=== PATIENT | male | born 1950 | race Caucasian/White ===

== ENCOUNTER 2019-06-15 17:12 | Inpatient (IN) | payer OTHER, SELFPAY ==
[2019-06-15] VITALS (9 sets, daily range): BP systolic 97–147; BP diastolic 52–85; PULSE 72–98; RESP 15–23; TEMP 36.6–37.1; O2SAT 92–100
--- NOTE | ~2019-06-15 | XR_ITS ---
XR chest 1V portable 06/15/2019 20:51 Indication: Appendicitis. Preop. Procedure: 2 view chest Comparison: No prior studies for comparison. Findings: Heart size normal. No focal air space disease, pulmonary edema, pleural effusion or suspect ed pneumothorax. No acute osseous abnormality. There are changes of distal clavicular osteotomy on th e left. Impression: 1: No acute cardiopulmonary disease. Reviewed, dictated and finalized at location A. PERSON OR LUGGAGE PORTER Impression: 1: No acute cardiopulmonary disease.
--- NOTE | ~2019-06-15 | XR_ITS ---
EXAMINATION: XR abdomen NG/feed tube insert EXAM DATE: 06/23/2019 12:20 INDICATION: Tube placement. TECHNIQUE: Frontal projection(s) of the abdomen for interpretation. Comparison is made to prior exami nation from earlier same date. FINDINGS: Feeding tube tip is at the gastroesophageal junction, could be safely advanced about 10 cm. Multiple loops of severely distended air-filled small bowel, could be ileus correlating with prior r eports. IMPRESSION: Feeding tube should be advanced about 10 cm. I discussed feeding tube position, recommendation with Layo nurse taking care of patient at 06/23/2019 12:37 FRONT ATTENDANT. Reviewed, dictated and finalized at location A. T ATTENDANT
--- NOTE | ~2019-06-15 | CT_ITS ---
EXAMINATION: CT abdomen pelvis w con DATE: 06/23/2019 17:15 INDICATION: Abdominal distention post appendectomy TECHNIQUE: Computed tomography (CT) of the abdomen and pelvis was performed with 100 mL Omnipaque-350 intravenous contrast. Automated exposure control and iterative reconstruction technique were employe d. The dose-length product was 542.34 mGy-cm. COMPARISON: CT dated 06/15/2019 and radiograph dated 06/23/2019 FINDINGS: Elevation of the right hemidiaphragm. Small bilateral pleural effusions with compressive atelectasis in the bilateral lower lobes, right greater than left. Heart size is normal. Atherosclerotic coronary artery calcifications. No pericardial effusion. Small sliding-type hiatal hernia. Enteric feeding tu be tip in the distal thoracic body of the stomach. Diffuse hepatic steatosis with more focal fat along the gallbladder fossa. 12 mm cyst in the right he patic lobe. Gallbladder, spleen, pancreas, bilateral adrenal glands and right kidney are normal. Nono bstructing 2 mm stone at a lower pole calyx of the right kidney. 6 Postoperative change of interval appendectomy with suture line along the tip of the cecum. Surgical drain enters at the midline anterior abdominal wall close in the pelvis with distal tip along the la teral tip of the cecum. There is at least partial small bowel obstruction with dilated loops of bowel measuring up to 5 cm in maximal diameter with transition point in the left hemipelvis where the shan l makes a sharp 180 degree turn around the surgical drain with the more distal small bowel is decompr essed. Stafford catheter in the decompressed bladder. Minimal ascites in the deep pelvis. No abscess or free intraperitoneal gas. No pathologically enlarged abdominal or pelvic lymphadenopathy. There is calcified atherosclerosis of the aorta and many of the other arteries. Severe spondylosis at the lumbosacral junction. Mild to mo derate spondylosis of the more cephalad thoracic and lumbar spine. There are few scattered small scle rotic bone islands predominantly at the right hip. IMPRESSION: 1. Small bowel obstruction with transition point in the left hemipelvis with the bowel makes a 180 de gree turn around a surgical drain. Findings were discussed with Layo Perea, the nurse caring for the p atient, at 7:00 PM. 2. Postoperative changes consistent with recent appendectomy. No abscess or free intraperitoneal gas. 3. Small bilateral pleural effusions. 4. Small sliding-type hiatal hernia. 5. 2 mm nonobstructing right renal stone. Reviewed, dictated and finalized at location A. CTOR OF CATERING IMPRESSION: 1. Small bowel obstruction with transition point in the left hemipelvis with th e bowel makes a 180 degree turn around a surgical drain. Findings were discusse d with Layo Perea, the nurse caring for the patient, at 7:00 PM. 2. Postoperative changes consistent with recent appendectomy. No abscess or stanton e intraperitoneal gas. 3. Small bilateral pleural effusions. 4. Small sliding-type hiatal hernia. 5. 2 mm nonobstructing right renal stone.
--- NOTE | ~2019-06-15 | XR_ITS ---
EXAMINATION: XR abdomen/kub 1V DATE: 06/23/2019 10:10 INDICATION: Abdominal pain and distention. TECHNIQUE: A supine view of the abdomen on 2 radiographs was obtained. COMPARISON: CT abdomen and pelvis 06/15/2019 FINDINGS: There are multiple dilated loops of small bowel. The colon is decompressed. A surgical drai n overlies the pelvis. IMPRESSION: 1. Dilated small bowel, consistent with adynamic ileus. Reviewed, dictated and finalized at location A. N RESOURCES OPERATIONS DIRECTOR
--- NOTE | ~2019-06-15 | XR_ITS ---
EXAMINATION: XR abdomen NG/feed tube insert EXAM DATE: 06/17/2019 08:27 INDICATION: Nasogastric tube placement. Small bowel perforation. TECHNIQUE: Frontal projection(s) of the abdomen for interpretation. Comparison is made to prior exami nation from earlier same date. FINDINGS: Feeding tube has been inserted, overlies expected position. There are multiple loops of se verely distended air-filled small bowel, obstruction. Right basilar subsegmental atelectasis. Moderat e lumbar spondylosis. Can't identify the free intraperitoneal gas seen on CT which is more sensitive. IMPRESSION: 1. Small bowel obstruction. 2. Feeding tube in position. Reviewed, dictated and finalized at location B. O AERIAL INSTALLER
--- NOTE | ~2019-06-15 | XR_ITS ---
EXAMINATION: XR abdomen NG/feed tube rechec EXAM DATE: 06/23/2019 13:31 INDICATION: Feeding tube advanced. TECHNIQUE: Frontal projection(s) of the abdomen for interpretation. Comparison is made to prior exami nation from 06/23/2019. FINDINGS: Feeding tube has been advanced, tip and side-port project over gastric bubble, adequate. S everely distended small bowel loops likely ileus. There is no organomegaly. IMPRESSION: Feeding tube in position. Ileus. Reviewed, dictated and finalized at location A. ERCIAL PAINTER
--- NOTE | ~2019-06-15 | CT_ITS ---
EXAMINATION: CT abdomen pelvis w con DATE: 06/15/2019 19:06 INDICATION: Small bowel obstruction. Perforation. TECHNIQUE: Computed tomography (CT) of the abdomen and pelvis was performed with 100 cc Omnipaque 350 intravenous contrast. The dose-length product was 324.19 mGy-cm. Automated exposure control and iter ative reconstruction technique were employed. COMPARISON: None. FINDINGS: Lung bases are unremarkable. No significant pleural or pericardial effusion. Heart size nor mal. There is free fluid in the upper abdomen. Small amount of free air along the anterior margin of the liver, consistent with perforation. Fatty infiltration of the liver. There is a 1.4 cm hypovascular lesion of the right hepatic lobe, lik josue benign. The spleen, pancreas, adrenal glands and right kidney are unremarkable. There is a subcen timeter hypodensity of the left kidney, most likely benign cysts. There is abnormal thickening of the appendix which measures approximately 1.8 cm and contains appendi coliths and debris. There is surrounding inflammatory change. Findings compatible with acute appendic itis. Colonic diverticulosis. No definite evidence for acute diverticulitis. There is a hiatal hernia . There is ectasia and atherosclerosis of the aorta measuring 2.5 cm greatest dimension. No aneurysm. No lymphadenopathy. No definite bowel obstruction. Moderate lumbar spondylosis. IMPRESSION: 1. There is thickening of the appendix with surrounding inflammatory change, compatible with acute ap pendicitis. Free air in the right upper abdomen may relate to perforated appendicitis or other viscus . No abscess identified. 2: Small amount of ascites. 3: Hepatic steatosis. Reviewed, dictated and finalized at location A. RANCE PROCESSING CLERK IMPRESSION: 1. There is thickening of the appendix with surrounding inflammatory change, co mpatible with acute appendicitis. Free air in the right upper abdomen may relat e to perforated appendicitis or other viscus. No abscess identified. 2: Small amount of ascites. 3: Hepatic steatosis.
--- NOTE | ~2019-06-15 | XR_ITS ---
EXAMINATION: XR abdomen obstructive series DATE: 06/17/2019 06:46 INDICATION: High-volume emesis and SUSANA drain output TECHNIQUE: Upright and supine views of the abdomen were obtained. COMPARISON: None. FINDINGS: There are multiple mildly dilated loops of small bowel in the mid abdomen. A surgical drain is present in the pelvis and right lower quadrant. A few foci of suspected free gas in the right abd omen likely relate to recent surgery. There is mild atelectasis of the lung bases. IMPRESSION: 1. Dilated small bowel loops, likely postoperative ileus. 2. Suspected free gas in the right abdomen, likely related to recent surgery. Reviewed, dictated and finalized at location A. [employer]
--- NOTE | 2019-06-15 17:30 | ED.ABDPAIN ---
HPI - Abdominal Pain General Chief Complaint: Abdominal Pain Stated Complaint: ABD PAIN Time Seen by Provider: 06/15/19 17:29 Source: patient Mode of arrival: ambulatory Limitations: no limitations History of Present Illness HPI narrative: The pt is a 69 y/o male who presents to the ED with c/o constant ABD pain that began last night. The pt states that he has never had this pain before. He has tried taking Tylenol with no relief and notes that nothing makes his pain better or worse. The pt last ate this morning and also last had a normal bowel movement this morning. The pt reports nausea and vomiting twice today, but denies diarrhea, fever, chills, constipation, CP, or SOB. He is a former smoker that quit 1 year ago and drinks occasionally. The pt has no SHX of ABD surgery but does have coronary stents. He has never had ABD pain like this before. MD elicited complaint: abdominal pain Onset (ago): day(s) ( began last night) Pain Consistency: constant Exacerbating factors: nothing Relieving factors: nothing Associated symptoms: nausea and vomiting Treatments prior to arrival: other (Tylenol) Related Data Home Medications Medication Instructions Recorded Confirmed atorvastatin 06/15/19 ipratropium-albuterol 06/15/19 isosorbide mononitrate 06/15/19 lisinopril 06/15/19 metoprolol succinate 06/15/19 nitroglycerin 06/15/19 omeprazole 06/15/19 ticagrelor 06/15/19 Allergies Allergy/AdvReac Type Severity Reaction Status Date / Time celecoxib Allergy Mild HIVES Verified 06/15/19 20:30 Review of Systems Review of Systems: All systems reviewed & are unremarkable except as noted in HPI and below Constitutional: Constitutional: Denies chills and Denies fever(s) Cardiovascular: Cardiovascular: Denies chest pain Respiratory: Respiratory: Denies dyspnea Gastrointestinal: Gastrointestinal: Reports abdominal pain, Denies constipation, Denies diarrhea, Reports nausea and Reports vomiting PMFSH Past Medical History Medical History Anticoagulant long-term use took Brilinta at 0200 today CAD (coronary artery disease) >4 METs, states no issues since last stent placed 1 year ago, however was scheduled for stent placement this upcoming week. GERD (gastroesophageal reflux disease) Hyperlipidemia Hypertension No active medical problems Surgical History Surgical History H/O heart artery stent stent placed 1 year ago (05/2018?), scheduled for follow up stent placement this upcoming week. Social History Social History Social History: quit 1 year ago, 2-2.5 PPD x 50 years prior Smoking status: Former smoker Smoking end date: 05/18/18 Alcohol intake: current Exam Narrative: Exam Narrative: General appearance: Well-developed, well-nourished, very uncomfortable, in pain, at the bedside Skin: Normal color Head: Normocephalic, nontraumatic Eyes: Clear conjunctiva ENT: Oropharynx normal, ears normal, nose normal Neck: Supple, nontender Chest and respiratory: Airway patent, no respiratory distress, no accessory muscle use Heart: Regular rate/rhythm Abdomen: Abdominal distention, diffusely tender, positive rebound, quiet bowel sounds Vascular: Normal peripheral pulses, normal capillary refill. Musculoskeletal: Normal range of motion, nontender back Neurologic: Alert and oriented ?3, COMMERCIAL TECHNICIAN is normal as tested, no gross motor deficit Course Course Emergency Course: Pain decreased, Consultations Consultation #1: Discussed case with Dr. Pearl, general surgeon.
[2019-06-15 17:41] LABS: Basophils Percent Auto 0.2 % (0.2-1.2); Hematocrit 39.2 % (42.0-52.0); Hemoglobin 12.4 g/dL (14.0-18.0); Immature Granulocyte Absolute 0.09 K/mm3 (0.00-0.031); Immature Granulocyte Percent A 0.6 % (0-0.5); Lymphocytes Percent Auto 7.9 % (18.3-44.2); Mean Corpuscular HGB Conc 31.6 g/dl (32-36); Mean Corpuscular Hemoglobin 27.3 pg (26-34); Mean Corpuscular Volume 86.3 fl (80-100); Mean Platelet Volume 9.8 fl (7.4-10.4); Monocytes Absolute Auto 1.2 K/mm3 (0.1-0.6); Monocytes Percent Auto 7.6 % (2.6-8.5); Neutrophils Absolute Auto 12.7 K/mm3 (1.3-6.7); Neutrophils Percent Auto 83.7 % (45.5-73.1); Platelet Count Result 280 k/mm3 (150-375); Red Blood Count 4.54 M/mm3 (4.6-6.20); Red Cell Distribution Width 13.3 % (11.5-14.5); White Blood Count 15.1 K/mm3 (4.5-10.0)
[2019-06-15] MEDS: ONDANSETRON INJ 4 MG/2 ML VIAL IV PUSH (17:46)
[2019-06-15] MEDS: HYDROMORPHONE HCL 1 MG/ML INJ 0.5 MG IV PUSH (17:46)
[2019-06-15] MEDS: SODIUM CHLORIDE 0.9% IV 1,000 ML 999 ML IV CONT ×2 (17:47→20:25)
[2019-06-15 17:53] LABS: Alanine Aminotransferase 25 U/L (4-50); Albumin Level 4.9 g/dL (3.5-5.1); Alkaline Phosphatase 95 U/L (38-126); Aspartate Amino Transferase 25 U/L (17-59); Blood Urea Nitrogen 30 mg/dL (9-20); Calcium 10.1 mg/dL (8.4-10.2); Carbon Dioxide 21 mmol/L (22-30); Chloride 96 mmol/L (98-107); Estimated CRCL calculation 64 ml/min; Estimated Glomerular Filt Rate > 60; Glucose 148 mg/dL (75-110); Lipase 41 U/L (23-300); Potassium 4.6 mmol/L (3.4-5.0); Sodium 133 mmol/L (137-145)
[2019-06-15 18:01] LABS: Lactic Acid Reflex 1.6 mmol/L (0.7-2.1)
--- NOTE | 2019-06-15 18:18 | PC.NURSE ---
Patient oxygen level noted to be 82% on room air after dilaudid given. Placed on 2 Li NC at this time. Dr. Carpenter notified. Patient also requesting more pain medication, Dr. Carpenter notified but no new orders at this time.
--- NOTE | 2019-06-15 19:17 | PC.NURSE ---
Patient asked to provide urine sample at this time. Patient reports he is unable to go at this time and is refusing straight catheter.
--- NOTE | 2019-06-15 19:59 | PC.NURSE ---
Pt still unable to urinate, JACOB Carpenter notified.
[2019-06-15 20:33] LABS: Add Urine Microscopic? YES; Appearance Urine Clear (Clear); Bilirubin Urine Negative (Negative); Blood Urine 2+ (Negative); Color Urine Straw (Yellow); Glucose Urine UA Negative (Negative); Ketones Urine Negative (Negative); Leukocyte Esterase Ur Negative LEU/UL (Negative); Mucus Urine Moderate /lpf; Nitrate Urine Negative (Negative); Protein Urine Negative (Negative); RBC Urine 0-2 /hpf (0-2); Squamous Epithelial Cell Urine Occasional /hpf (Few); Urobilinogen Urine Negative mg/dL (<2.0); WBC Urine 0-3 /hpf
--- NOTE | 2019-06-15 20:35 | ECG_ITS ---
Measurements Intervals [place] Rate: 87 P: 51 PA: 143 QRS: 11 QRSD: 99 T: 61 QT: 346 QTc: 417 Interpretive Statements SINUS RHYTHM RSR' IN V1 OR V2, CONSIDER RIGHT VENTRICULAR HYPERTROPHY OR RIGHT VCD BASELINE ARTIFACT- I, II, III, AVR, AVF, V5-V6 BORDERLINE ECG Electronically Signed On 06-15-2019 21:36:32 DIALYSIS SOCIAL WORKER by David Hoang D.O.
[2019-06-15 20:39] LABS: Specific Grav Ur > 1.060 (1.001-1.035)
[2019-06-15 21:15] LABS: INR 1.1; Prothrombin Time 14.3 Seconds (11.1-14.7)
[2019-06-15 21:16] LABS: Partial Thromboplastin Time 31.4 SECONDS (22.3-36.8)
--- NOTE | 2019-06-15 21:26 | WPDANESEPPF ---
Anes - Initial Pre Proc Eval Procedure: Lap appendectomy Date/Time: 06/15/19 21:26 Surgeon: Anshul Pearl DO Pre Op Diagnosis: Acute appendicitis Pre Op Diagnosis: ABD PAIN Patient Data Age: 69 Gender: M Height: 1.78 m Weight: 77.6 kg Last Vital Signs Temp 36.6 C 06/15/19 21:19 Pulse 86 06/15/19 21:19 Resp 19 06/15/19 21:19 BP 117/67 06/15/19 21:19 Pulse Ox 98 06/15/19 21:19 Allergies Allergy/AdvReac Type Severity Reaction Status Date / Time celecoxib Allergy Mild HIVES Verified 06/15/19 20:30 Home Medications Medication Instructions Recorded Confirmed Type atorvastatin 06/15/19 History ipratropium-albuterol 06/15/19 History isosorbide mononitrate 06/15/19 History lisinopril 06/15/19 History metoprolol succinate 06/15/19 History nitroglycerin 06/15/19 History omeprazole 06/15/19 History ticagrelor 06/15/19 History Laboratory Tests 06/15/19 06/15/19 06/15/19 17:34 17:34 17:45 WBC 15.1 K/mm3 H K/mm3 (4.5-10.0) RBC 4.54 M/mm3 L M/mm3 (4.6-6.20) Hgb 12.4 g/dL L g/dL (14.0-18.0) Hct 39.2 % L % (42.0-52.0) MCV 86.3 fl fl (80-100) MCH 27.3 pg pg (26-34) MCHC 31.6 g/dl L g/dl (32-36) RDW 13.3 % % (11.5-14.5) Plt Count 280 k/mm3 k/mm3 (150-375) MPV 9.8 fl fl (7.4-10.4) Immature Gran % (Auto) 0.6 % H % (0-0.5) Neut % (Auto) 83.7 % H % (45.5-73.1) Lymph % (Auto) 7.9 % L % (18.3-44.2) Jerome % (Auto) 7.6 % % (2.6-8.5) Eos % (Auto) 0.0 % % (0-4.4) Baso % (Auto) 0.2 % % (0.2-1.2) Lymph # (Auto) 1.20 K/mm3 K/mm3 (0.9-3.2) Jerome # (Auto) 1.2 K/mm3 H K/mm3 (0.1-0.6) Eos # (Auto) 0.0 K/mm3 K/mm3 (0-0.3) Baso # (Auto) 0.0 K/mm3 K/mm3 (0.0-0.1) Abs Immat Gran (auto) 0.09 K/mm3 H K/mm3 (0.00-0.031) Absolute Neuts (auto) 12.7 K/mm3 H K/mm3 (1.3-6.7) Absolute Nucleated RBC 0.0 K/mm3 K/mm3 (0.0-0.012) Nucleated RBC % 0.0 % % (0.0-0.2) PT INR APTT Sodium 133 mmol/L L mmol/L (137-145) Potassium 4.6 mmol/L mmol/L (3.4-5.0) Chloride 96 mmol/L L mmol/L (98-107) Carbon Dioxide 21 mmol/L L mmol/L (22-30) BUN 30 mg/dL H mg/dL (9-20) Creatinine 1.00 mg/dL mg/dL (0.7-1.3) Estim Creat Clear Calc 64 ml/min ml/min Estimated GFR > 60 (59 - ) Glucose 148 mg/dL H mg/dL (75-110) Lactic Acid 1.6 mmol/L mmol/L (0.7-2.1) Calcium 10.1 mg/dL mg/dL (8.4-10.2) Total Bilirubin 1.0 mg/dL mg/dL (0.2-1.3) AST 25 U/L U/L (17-59) ALT 25 U/L U/L (4-50) Alkaline Phosphatase 95 U/L U/L (38-126) Total Protein 8.0 g/dL g/dL (6.3-8.2) Albumin 4.9 g/dL g/dL (3.5-5.1) Lipase 41 U/L U/L (23-300) Urine Color Urine Appearance Urine pH Ur Specific [place] Urine Protein Urine Glucose (UA) Urine Ketones Ur Blood (Man) Urine Nitrate Urine Bilirubin Urine Urobilinogen Leukocyte Esterase Rfl Urine RBC Urine WBC Ur Squamous Epith Cells Urine Mucus Blood Type Antibody Screen 06/15/19 06/15/19 06/15/19 20:22 21:00 21:00 WBC RBC Hgb Hct MCV MCH MCHC RDW Plt Count MPV Immature Gran % (Auto) Neut % (Auto) Lymph % (Auto) Jerome % (Auto) Eos % (Auto) Baso % (Auto) Lymph # (Auto)
--- NOTE | 2019-06-15 22:18 | PM.IMHP ---
H&P: HPI History of Present Illness Chief complaint: ABD PAIN Narrative: Dewayne Pérez is a 69 year old male who presented to the emergency department tonight with severe abdominal pain. His pain started last night and has progressively worsened. He denies any fevers. He has had nausea and vomited a couple times today. He was somewhat hypotensive in the emergency department after receiving pain meds. Otherwise he has been hemodynamically stable. He has never experienced symptoms like this in the past. Denies prior abdominal surgeries. He does have a history of coronary artery disease and had a stent placed last year. He was scheduled to undergo another stent placement next week. He is currently on aspirin and Brilinta. Review of Systems Review of Systems: All systems reviewed & are unremarkable except as noted in HPI and below Constitutional: Constitutional: Denies chills and Denies fever(s) Eyes: Eyes: Denies change in vision ENT: Denies hearing loss, Denies neck pain and Denies sore throat Cardiovascular: Cardiovascular: Denies chest pain and Denies dyspnea Respiratory: Respiratory: Denies cough, Denies dyspnea and Denies wheezing Genitourinary: Genitourinary: Denies hematuria and Denies dysuria Musculoskeletal: Musculoskeletal: Denies arthralgias, Denies joint swelling and Denies neck pain Allergic/Immunologic: Allergic/Immunologic: Denies wheezing PMFSH Past Medical History Medical History Anticoagulant long-term use took Brilinta at 0200 today CAD (coronary artery disease) >4 METs, states no issues since last stent placed 1 year ago, however was scheduled for stent placement this upcoming week. GERD (gastroesophageal reflux disease) Hyperlipidemia Hypertension No active medical problems Surgical History Surgical History H/O heart artery stent stent placed 1 year ago (05/2018?), scheduled for follow up stent placement this upcoming week. Social History Social History Social History: quit 1 year ago, 2-2.5 PPD x 50 years prior Smoking status: Former smoker Smoking end date: 05/18/18 Alcohol intake: current Meds Home Medications and Allergies Home Medications Medication Instructions Recorded Confirmed Type atorvastatin 06/15/19 History ipratropium-albuterol 06/15/19 History isosorbide mononitrate 06/15/19 History lisinopril 06/15/19 History metoprolol succinate 06/15/19 History nitroglycerin 06/15/19 History omeprazole 06/15/19 History ticagrelor 06/15/19 History Allergies Allergy/AdvReac Type Severity Reaction Status Date / Time celecoxib Allergy Mild HIVES Verified 06/15/19 20:30 Vital Signs Vital Signs - 24 hr 06/15/19 17:12 06/15/19 17:54 06/15/19 18:15 Temperature 36.6 C 36.6 C Pulse Rate 90 81 Respiratory Rate 19 18 Blood Pressure 134/81 127/69 Pulse Oximetry 98 93 06/15/19 18:36 06/15/19 19:58 06/15/19 20:28 Temperature 37.1 C Pulse Rate 95 98 81 Respiratory Rate 18 15 16 Blood Pressure 115/85 147/72 H 117/71 Pulse Oximetry 92 98 96 06/15/19 21:19 Temperature 36.6 C Pulse Rate 86 Respiratory Rate 19 Blood Pressure 117/67 Pulse Oximetry 98 Exam Const: General: alert; No acute distress Orientation/consciousness: patient oriented x3 Limitations: no limitations HENMT: Head: normocephalic and atraumatic Ears: hearing grossly normal bilaterally General nose exam: Normal external nose present and Normal nares present Mouth: Yes Normal oral and palatal mucosa present and Yes moist mucous membranes Eyes: General: appearance normal, both eyes and all related structures Conjunctivae: conjunctivae normal Sclera: sclerae normal Pupils: Equal, round and reactive pupils present EOM: EOMs intact bilaterally Neck: Neck: normal visual inspection, full ROM,
[2019-06-15] MEDS: BUPIVACAINE/EPINEPHRINE 0.5% 30 ML VIAL INFILTRATE (22:53)
--- NOTE | 2019-06-15 23:50 | PM.PROC ---
Procedure Note - Detailed Date of procedure: 06/15/19 Pre-op diagnosis: Acute perforated appendicitis Post-op diagnosis: other (Perforated appendicitis with generalized peritonitis, intraabdominal abscess) Procedure performed: 1. Laparoscopic Appendectomy 2. Laparoscopic drainage of intraabdominal abscess Description of procedure: Procedure as well as risks, benefits, and alternatives were explained to the patient. The patient agreed to proceed. Written consent was obtained and placed in chart prior to procedure. The patient was brought back to surgical suite. He was placed supine on operating table. Time-out was done to confirm the patient and procedure. The patient was then intubated by the Anesthesia Department. His abdomen was prepped and draped in sterile fashion using chlorhexidine prep. A 12 mm incision was made vertically just superior to the umbilicus. Blunt dissection was carried out down to the linea alba. The linea alba was then incised using a 15 blade scalpel. The peritoneum was then bluntly entered and a 12 mm trocar was placed. Once inside the peritoneal cavity, carbon dioxide insufflation was used to create a pneumoperitoneum. The camera was inserted and the abdomen was inspected. No immediate abnormalities were identified. The patient was then placed in slight Trendelenburg position and rotated to the left. A 5 mm incision was made in the suprapubic region in midline and a 5 mm trocar was inserted under direct visualization. A 5 mm incision was made in the left lower quadrant and a 5 mm trocar was inserted under direct visualization. The right lower quadrant was carefully inspected. The cecum was identified and then this was traced back to the appendix. The appendix was identified and grasped at the mesoappendix and lifted anteriorly. Careful blunt dissection was carried out at the base of the appendix through the mesoappendix using a [place] grasper. An Endo-ERNESTINA 45 mm blue load stapler was then advanced across the base of the appendix and clamped and fired. A white reload was then clamped across the mesoappendix and fired. This freed up our appendix completely. It was then placed in an EndoCatch bag and removed through the left lower quadrant port. The staple lines were then inspected. Hemostasis appeared adequate and the staple lines appeared secure. The purulent fluid was then suctioned clear around the area of perforation, as well as in the pelvis and perihepatic areas. The area was then irrigated with 3 liters of sterile saline. The pelvis was then carefully inspected and irrigated with sterile saline as well and the remainder of the abdomen was carefully inspected. The patient was then flattened out in bed. One final inspection was made around the abdominal cavity and no other abnormalities were seen. A 19 round Zeferino drain was placed through the suprapubic port, and positioned along the pelvis and right gutter. The remaining ports were then removed under direct visualization. The camera was removed and the pneumoperitoneum was released. The fascia of the umbilical incision was approximated using an 0 Vicryl figure of eight suture. 0.5% bupivacaine with epinephrine was infiltrated locally around each of the incisions. The skin of the incisions was then approximated using 4-0 Monocryl subcuticular suture and Exofin glue was applied on top. The patient was then awakened from anesthesia, extubated, and transferred to Recovery. Anesthesia: GETA and local (0.5% bupivicaine with epi) Surgeon: Anshul Pearl DO Estimated blood loss (mL): 20 Drains: Yes Pathology: yes (Appendix) Complications: No immediate complications Condition: critical Disposition: ICU Findings: This is a 69-year-old man who presented to the emergency department with severe abdominal pain. His pain started last night and progressively worsened throughout the day today. He denied fevers, but he was experiencing nausea and vomiting. He had never
[2019-06-15] MEDS: LACTATED RINGERS 500 ML 30 ML IV CONT (23:59)
[2019-06-16] VITALS (16 sets, daily range): BP systolic 103–136; BP diastolic 54–81; PULSE 71–100; RESP 15–22; TEMP 36.7–37.2; O2SAT 90–99; BMI 24.4
[2019-06-16] MEDS: LACTATED RINGERS 1,000 ML 150 ML IV CONT ×4 (01:20→20:54)
[2019-06-16 04:32] LABS: Hematocrit 34.8 % (42.0-52.0); Hemoglobin 10.9 g/dL (14.0-18.0); Mean Corpuscular HGB Conc 31.3 g/dl (32-36); Mean Corpuscular Hemoglobin 27.6 pg (26-34); Mean Corpuscular Volume 88.1 fl (80-100); Mean Platelet Volume 9.7 fl (7.4-10.4); Platelet Count Result 205 k/mm3 (150-375); Red Blood Count 3.95 M/mm3 (4.6-6.20); Red Cell Distribution Width 13.3 % (11.5-14.5); White Blood Count 7.2 K/mm3 (4.5-10.0)
[2019-06-16 04:48] LABS: Blood Urea Nitrogen 22 mg/dL (9-20); Calcium 8.8 mg/dL (8.4-10.2); Carbon Dioxide 24 mmol/L (22-30); Chloride 101 mmol/L (98-107); Estimated CRCL calculation 59 ml/min; Estimated Glomerular Filt Rate > 60; Glucose 129 mg/dL (75-110); Potassium 4.6 mmol/L (3.4-5.0); Sodium 133 mmol/L (137-145)
[2019-06-16] MEDS: ENOXAPARIN 40 MG/0.4 ML SYRINGE SUB-Q (08:03)
--- NOTE | 2019-06-16 09:26 | WPDCNINT ---
Assessment and Plan Assessment and plan (1) Acute appendicitis with perforation and generalized peritonitis: Qualifiers: Appendicitis abscess presence: without abscess Appendicitis gangrene presence: unspecified whether gangrene present Qualified Code(s): K35.20 - Acute appendicitis with generalized peritonitis, without abscess Code(s): K35.20 - Acute appendicitis with generalized peritonitis, without abscess Status: Acute Assessment and Plan: patient presented with abdominal pain, CT scan showed appendicitis with evidence of perforation. Patient underwent laparoscopic appendectomy on 06/15/2019 - Patient was adequately fluid resuscitated, hemodynamically stable at this time - no evidence of sepsis or septic shock - white count has normalized - will continue to monitor urine output (2) CAD (coronary artery disease): Code(s): I25.10 - Atherosclerotic heart disease of [place] coronary artery without angina pectoris Status: Chronic Assessment and Plan: patient with history of coronary artery disease with stent x1 in 2019 and was due for another stent to be placed sometime next week. - Patient has been on Brilinta, will discuss with surgery regarding restarting Brilinta - patient also on metoprolol and lisinopril at home, blood pressures are borderline, (3) Hypertension: Code(s): I10 - Essential (primary) hypertension Status: Chronic Assessment and Plan: blood pressures are stable and borderline will hold lisinopril and metoprolol at this time Additional Plan discussed with patient family at bedside updated them with his condition and plan of care. I answered all questions. Code status: Full code Critical care time spent: 37 minutes Due to a high probability of clinically significant, life threatening deterioration, the patient required my highest level of preparedness to intervene emergently and I personally spent this critical care time directly and personally managing the patient. This critical care time included obtaining a history; examining the patient; pulse oximetry; ordering and review of studies; arranging urgent treatment with development of a management plan; evaluation of patient's response to treatment; frequent reassessment; and discussions with other providers. It was exclusive of separately billable procedures and treating other patients and teaching time. Please see Assessment and Plan section and the rest of the note for further information on patient assessment and treatment Yarn Salvager Consult Note Consult date: 06/16/19 Time Seen: 06:58 Reason for consult: Patient presented with severe abdominal pain, found to have appendicitis with perforation on CT scan, status post laparoscopic appendectomy HPI: Dewayne Pérez is a 69 year old male with past medical history of coronary artery disease with stent x1 placed in 2019 on Brilinta, patient was scheduled for stent placement next week, hyperlipidemia, hypertension presented to the ED on 06/15/2019 with complains of abdominal pain on the night of admission. Patient stated that he had never experiences such pain before. Patient also complained of nausea and vomiting but denies any diarrhea, fevers, chills, constipation. He did have a bowel movement on the day of admission. CT scan of the abdomen and pelvis showed appendicitis along with free air. Patient status post laparoscopic appendicectomy with perforation, purulent drainage noticed and the proton which was lavaged. Patient was transfer the ICU postop for observation as patient could have gone septic. Patient seen and examined this morning. Patient is awake, alert, oriented x3, nonfocal. Patient is hemodynamically stable, denies any chest pain, shortness of breath, abdominal pain, nausea, vomiting. He has not required any pain medications since the procedure. Urine output has been low. Review of Systems Review of Systems: All s
--- NOTE | 2019-06-16 09:39 | PM.PNGS ---
Progress Note: A&P Assessment and Plan (1) Acute appendicitis with perforation and generalized peritonitis: Qualifiers: Appendicitis abscess presence: without abscess Appendicitis gangrene presence: unspecified whether gangrene present Qualified Code(s): K35.20 - Acute appendicitis with generalized peritonitis, without abscess Code(s): K35.20 - Acute appendicitis with generalized peritonitis, without abscess Status: Acute Assessment and Plan: Postop day 1 and patient doing well. Continue IV antibiotics. Will transfer patient out of ICU today to a [facility] surg floor with telemetry. Continue clear liquids today. Encouraged to get up to the chair and attempt walking the halls today. Encouraged IS use. 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 Appreciate their help. (4) Hypertension: Code(s): I10 - Essential (primary) hypertension Status: Chronic Subjective Subjective Date/Time Seen: 06/16/19 09:20 Post Op day: 1 (Laparoscopic appendectomy) Patient reports: pain is less, tolerating liquids well and no flatus Interval history: Patient seen and examined. Status post laparoscopic appendectomy last night. Patient states his abdominal pain now is much better compared to the pain he was feeling prior to surgery. He has only had IV Tylenol this morning. Patient has had minimal clear liquids for breakfast states he tolerated this well. Denies any nausea, vomiting, or bloating. Denies flatus, but also has not gotten out of bed yet today. Hemodynamically stable overnight. H/H stable. No other complaints at this time. SUSANA drain output 140 cc overnight. Review of Systems Review of Systems: All systems reviewed & are unremarkable except as noted in HPI and below Constitutional: Constitutional: Denies chills and Denies fever(s) Cardiovascular: Cardiovascular: Denies chest pain and Denies leg edema Respiratory: Respiratory: Reports cough (occasional non-productive cough), Denies dyspnea and Denies wheezing Gastrointestinal: Gastrointestinal: Reports as per HPI, Reports no additional gastrointestinal complaints, Denies bloating, Denies nausea and Denies vomiting Genitourinary: Comments: Urinary catheter in place. Exam Const: General: comfortable, no acute distress, alert and awake Orientation/consciousness: patient oriented x3 Resp: Effort & Inspection: normal respiratory effort and able to speak in complete sentences Auscultation: clear to auscultation bilaterally Cardio: Rate: regular rate Rhythm: regular rhythm Heart sounds: S1 normal heart sound present and S2 normal heart sound present Other: On threat monitoring analyst in ICU with telemetry appearing to be sinus rhythm in the 80's. GI: Inspection: incision (Abdominal incisions clean/dry/intact.) and other (mildly distended) GI Palp: Yes Soft to palpation, Yes Tenderness to palpation present (GI) (diffusely tender, worse on right side of abdomen) and Yes Guarding due to palpation present (GI) Auscultation: Hypoactive bowel sounds present Other: SUSANA drain with slightly cloudy serosanguineous drainage. Neuro: General: moves all extremities Cranial nerves: Yes CN's II-XII intact bilaterally Speech: normal speech Extrem: General: no calf tenderness Psych: Mental Status: mental status grossly normal Attitude: cooperative Thought process: Normal thought process present Thought content: Yes Normal thought content present Objective Data Vital Signs Vital Signs: Vital Signs - 24 hr 06/15/19 17:12 06/15/19 17:54 06/15/19 18:15 Temperature 36.6 C 36.6 C Pulse Rate 90 81 Respiratory Rate 19 18 Blood Pressure 1
--- NOTE | 2019-06-16 10:17 | WPDANESPN ---
Anes - Prog Note Post-Op Date/Time: 06/16/19 10:17 Vital Signs: Last Vital Signs Temp 98.2 F 06/16/19 08:06 Pulse 87 06/16/19 08:06 Resp 20 06/16/19 08:06 BP 108/63 06/16/19 08:06 Pulse Ox 96 06/16/19 08:06 I/O: Intake & Output 06/15/19 06/16/19 06/16/19 23:59 07:59 15:59 Intake Total 2050 200 1050 Output Total 130 490 Balance 1920 -290 1050 Laboratory Tests 06/16/19 04:11 06/16/19 04:11 06/15/19 06/15/19 06/15/19 17:34 17:34 17:45 WBC 15.1 H RBC 4.54 L Hgb 12.4 L Hct 39.2 L MCV 86.3 MCH 27.3 MCHC 31.6 L RDW 13.3 Plt Count 280 MPV 9.8 Immature Gran % (Auto) 0.6 H Neut % (Auto) 83.7 H Lymph % (Auto) 7.9 L [place] % (Auto) 7.6 Eos % (Auto) 0.0 Baso % (Auto) 0.2 Lymph # (Auto) 1.20 [place] # (Auto) 1.2 H Eos # (Auto) 0.0 Baso # (Auto) 0.0 Abs Immat Gran (auto) 0.09 H Absolute Neuts (auto) 12.7 H Absolute Nucleated RBC 0.0 Nucleated RBC % 0.0 PT INR APTT Sodium 133 L Potassium 4.6 Chloride 96 L Carbon Dioxide 21 L BUN 30 H Creatinine 1.00 Estim Creat Clear Calc 64 Estimated GFR > 60 Glucose 148 H Lactic Acid 1.6 Calcium 10.1 Total Bilirubin 1.0 AST 25 ALT 25 Alkaline Phosphatase 95 Total Protein 8.0 Albumin 4.9 Lipase 41 Urine Color Urine Appearance Urine pH Ur Specific [place] Urine Protein Urine Glucose (UA) Urine Ketones Ur Blood (Man) Urine Nitrate Urine Bilirubin Urine Urobilinogen Leukocyte Esterase Rfl Urine RBC Urine WBC Ur Squamous Epith Cells Urine Mucus Blood Type Antibody Screen 06/15/19 06/15/19 06/15/19 20:22 21:00 21:00 WBC RBC Hgb Hct MCV MCH MCHC RDW Plt Count MPV Immature Gran % (Auto) Neut % (Auto) Lymph % (Auto) [place] % (Auto) Eos % (Auto) Baso % (Auto) Lymph # (Auto) [place] # (Auto) Eos # (Auto) Baso # (Auto) Abs Immat Gran (auto) Absolute Neuts (auto) Absolute Nucleated RBC Nucleated RBC % PT 14.3 INR 1.1 APTT 31.4 Sodium Potassium Chloride Carbon Dioxide BUN Creatinine Estim Creat Clear Calc Estimated GFR Glucose Lactic Acid Calcium Total Bilirubin AST ALT Alkaline Phosphatase Total Protein Albumin Lipase Urine Color Straw Urine Appearance Clear Urine pH 5.0 Ur Specific [place] > 1.060 H Urine Protein Negative Urine Glucose (UA) Negative Urine Ketones Negative Ur Blood (Man) 2+ H Urine Nitrate Negative Urine Bilirubin Negative Urine Urobilinogen Negative Leukocyte Esterase Rfl Negative Urine RBC 0-2 Urine WBC 0-3 Ur Squamous Epith Cells Occasional Urine Mucus Moderate H Blood Type O Positive Antibody Screen Negative 06/16/19 06/16/19 04:11 04:11 WBC 7.2 RBC 3.95 L Hgb 10.9 L Hct 34.8 L MCV 88.1 MCH 27.6 MCHC 31.3 L RDW 13.3 Plt Count 205 MPV 9.7 Immature Gran % (Auto) Neut % (Auto) Lymph % (Auto) [place] % (Auto) Eos % (Auto) Baso % (Auto) Lymph # (Auto) [place] # (Auto) Eos # (Auto) Baso # (Auto) Abs Immat Gran (auto) Absolute Neuts (auto) Absolute Nucleated RBC Nucleated RBC % PT INR APTT Sodium 133 L Potassium 4.6 Chloride 101 Carbon Dioxide 24 BUN 22 H Creatinine 1.10 Estim Creat Clear Calc 59 Estimated GFR > 60 Glucose 129 H Lactic Acid Calcium 8.8 Total Bilirubin AST ALT Alkaline Phosphatase Total Protein Albumin Lipase Urine Color Urine Appearance Urine pH Ur Specific [place] Urine Protein Urine Glucose (UA) Urine Ketones Ur Blood (Man) Urine Nitrate Urine Bilirubin Urine Urobilinogen Leukocyte Esterase Rfl Urine RBC Urine WBC Ur Squamous Epith Cells Urine Muc
[2019-06-16] MEDS: HYDROMORPHONE HCL 1 MG/ML INJ IV PUSH (15:24)
--- NOTE | 2019-06-16 17:39 | PM.IMCN ---
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 Status: Chronic Assessment and Plan: Pt is on brilinta for CAD can restart tomorrow (4) Acute appendicitis with perforation and generalized peritonitis: Onset Date: ~06/15/19 Qualifiers: Appendicitis abscess presence: without abscess Appendicitis gangrene presence: unspecified whether gangrene present Qualified Code(s): K35.20 - Acute appendicitis with generalized peritonitis, without abscess Code(s): K35.20 - Acute appendicitis with generalized peritonitis, without abscess Status: Acute Assessment and Plan: post op day 1 laparoscopic appendectomy for perforated appendicitis pt on clear diet, for now encourage ambulation tomorrow pt feels too weak today (5) Hyponatremia: Code(s): E87.1 - Hypo-osmolality and hyponatremia Status: Acute Assessment and Plan: Pt is on fluids continue to monitor kidney function HPI Data of Consult Consult date: 06/18/19 Requesting Physician: Anshul Pearl DO Primary Care Provider: Gino Iverson MD Consult Narrative Narrative: Dewayne Pérez is a 69 year old male who presented to the emergency department tonight with severe abdominal pain. Sp laparoscopic appendectomy for perforated appendicitis on CT scan, pt has history of cad with stent x1 placed in 2019 on Brilinta. otherwise history of htn and hld. pt feels much better post op day 1 mild abdominal pain, no bowel movement, on clear liquid diet presently not out of his bed yet. Review of Systems Review of Systems: All systems reviewed & are unremarkable except as noted in HPI and below Gastrointestinal: Gastrointestinal: Reports abdominal pain PMFSH Past Medical History Medical History Anticoagulant long-term use Brilinta was not held pre-operatively d/t acuity of surgery CAD (coronary artery disease) >4 METs, states no issues since last stent placed 1 year ago, however was scheduled for stent placement this upcoming week. GERD (gastroesophageal reflux disease) Hyperlipidemia Hypertension No active medical problems Surgical History Surgical History H/O heart artery stent stent placed 1 year ago (05/2018?), scheduled for follow up stent placement this upcoming week. Family History Family History Father Chronic obstructive pulmonary disease Sibling Diabetes mellitus Social History Social History Social History: quit 1 year ago, 2-2.5 PPD x 50 years prior Smoking packs per day: 2 Smoking cigarettes per day: 40.0 Smoking status: Former smoker Tobacco type: cigarettes Smokeless tobacco user: chewing tobacco Second hand tobacco smoke exposure: No Smoking end date: 05/18/18 Alcohol intake: current Drinks per week: 3 Substance use: former Substance use type: does not use Gender identity (if verbalized by the patient): Male Spiritual care concerns: No Agree to blood products: Yes Meds Home Medications and Allergies Home Medications Medication Instructions Recorded Confirmed Type atorvastatin 80 mg PO HS 06/15/19 06/16/19 History ipratropium-albuterol 20 mcg INHALATION QID 06/15/19 06/16/19 History isosorbide mononitrate 30 mg PO DAE
--- NOTE | 2019-06-16 18:09 | PCDIET ---
This patient, Dewayne Pérez, was received from ICU-05 on 06/16/19 at 1800. Personal belongings list checked and signed. Patient/family oriented to unit policies and routines
[2019-06-16] MEDS: ATORVASTATIN 40 MG TABLET 80 MG PO (20:57)
[2019-06-17] VITALS (11 sets, daily range): BP systolic 121–152; BP diastolic 68–82; PULSE 81–91; RESP 16–18; TEMP 36.4–37.2; O2SAT 88–97
[2019-06-17] MEDS: LACTATED RINGERS 1,000 ML 150 ML IV CONT (04:28)
[2019-06-17] MEDS: ONDANSETRON INJ 4 MG/2 ML VIAL IV PUSH (04:34)
--- NOTE | 2019-06-17 07:44 | PM.PNGS ---
Progress Note: A&P Assessment and Plan (1) Acute appendicitis with perforation and generalized peritonitis: Qualifiers: Appendicitis abscess presence: without abscess Appendicitis gangrene presence: unspecified whether gangrene present Qualified Code(s): K35.20 - Acute appendicitis with generalized peritonitis, without abscess Code(s): K35.20 - Acute appendicitis with generalized peritonitis, without abscess Status: Acute Assessment and Plan: Continue IV Zosyn Monitor SUSANA drain output [place] out today Increase activity (2) Postoperative ileus: Code(s): K91.89 - Other postprocedural complications and disorders of digestive system; K56.7 - Ileus, unspecified Status: Acute Assessment and Plan: Patient more distended today and abdominal x-ray shows signs of ileus Will place NG tube this morning and decompressed bowel Await return of bowel function Change IV fluids to D5 half normal saline with 10 mEq KCL Repeat CBC and BMP this am (3) CAD (coronary artery disease): Code(s): I25.10 - Atherosclerotic heart disease of [place] coronary artery without angina pectoris Status: Chronic (4) Anticoagulant long-term use: Code(s): Z79.01 - long-term (current) use of anticoagulants Status: Chronic (5) Hypertension: Code(s): I10 - Essential (primary) hypertension Status: Chronic Subjective Subjective Date/Time Seen: 06/17/19 07:44 Patient became more distended overnight and has vomited a couple times. Having some increasing pain due to the distention. Very uncomfortable and nauseated. No fevers. No flatus or BM yet. Exam GI: Inspection: distended and other (SUSANA mostly serous) GI Palp: Yes Tenderness to palpation present (GI) (Mild diffuse) Auscultation: absent bowel sounds Objective Data Vital Signs Vital Signs: Vital Signs - 24 hr 06/16/19 08:00 06/16/19 08:06 06/16/19 12:00 Temperature 36.8 C Pulse Rate 83 87 78 Respiratory Rate 22 H 20 20 Blood Pressure 108/63 124/81 Pulse Oximetry 99 96 95 06/16/19 16:00 06/16/19 18:00 06/16/19 20:00 Temperature 37.0 C 36.7 C Pulse Rate 84 82 85 Respiratory Rate 20 16 Blood Pressure 122/54 L 119/63 Pulse Oximetry 93 93 06/16/19 22:00 06/16/19 22:17 06/17/19 00:26 Temperature 37.2 C Pulse Rate 85 100 89 Respiratory Rate 16 18 Blood Pressure 136/72 Pulse Oximetry 90 90 06/17/19 04:00 06/17/19 06:00 Temperature 36.4 C L Pulse Rate 91 85 Respiratory Rate 18 Blood Pressure 152/82 H Pulse Oximetry 91 Intake/Output Intake/Output: Intake & Output 06/14/19 06/15/19 06/16/19 06/17/19 23:59 23:59 23:59 23:59 Intake Total 2050 4740 1200 Output Total 130 1640 1360 Balance 1920 3100 -160 Meds/Results Medications: Active Medications Generic Name Dose Route Start Last Admin Trade Name Freq PRN Reason Stop Dose Admin Atorvastatin Calcium 80 mg 06/16/19 21:00 06/16/19 20:57 Lipitor PO 07/16/19 21:01 80 mg HS VERONICA Administration Enoxaparin Sodium 40 mg 06/16/19 09:00 06/16/19 08:03 Lovenox SUB-Q 40 mg DAILY VERONICA Administration Hydromorphone HCl 0.5 mg 06/16/19 00:11 Dilaudid Inj IV PUSH Q2H PRN Pain Rated 4-6 Hydromorphone HCl 1 mg 06/16/19 00:11 06/16/19 15:24 Dilaudid Inj IV PUSH 1 mg Q2H PRN Administration Pain Rated 7-10 Piperacillin/Tazobactam/Dextrose 3.375 gm in 50 mls @ 100 mls/hr 06/16/19 02:00 06/17/19 01:40 Zosyn 3.375 Gm/D5w 50ml Pm IVPB Infused Q6H VERONICA Infusion Potassium Chloride 10 meq/ 1,000 mls @ 100 mls/hr 06/17/19 07:45 Dextrose/Sodium Chloride IV CONT .Q10H VERONICA Isosorbide Mononitrate 30 mg 06/17/19 09:00 Imdur PO QAM VERONICA Lisinopril 20 mg 06/17/19 09:00 Prinivil PO QAM VERONICA Metoprolol Succinate 50 mg 06/17/19 09:00 Toprol Xl PO QAM [facility] Non-Formulary Medication 20 mcg 06/16/19 21:00 Ipratropium-Albuterol INHAL
[2019-06-17 07:59] LABS: Hematocrit 36.5 % (42.0-52.0); Hemoglobin 11.7 g/dL (14.0-18.0); Mean Corpuscular HGB Conc 32.1 g/dl (32-36); Mean Corpuscular Hemoglobin 27.8 pg (26-34); Mean Corpuscular Volume 86.7 fl (80-100); Mean Platelet Volume 9.8 fl (7.4-10.4); Platelet Count Result 213 k/mm3 (150-375); Red Blood Count 4.21 M/mm3 (4.6-6.20); Red Cell Distribution Width 13.6 % (11.5-14.5); White Blood Count 11.6 K/mm3 (4.5-10.0)
[2019-06-17 08:17] LABS: Blood Urea Nitrogen 22 mg/dL (9-20); Calcium 9.2 mg/dL (8.4-10.2); Carbon Dioxide 25 mmol/L (22-30); Chloride 96 mmol/L (98-107); Estimated CRCL calculation 71 ml/min; Estimated Glomerular Filt Rate > 60; Glucose 117 mg/dL (75-110); Magnesium 2.1 mg/dL (1.6-2.3); Potassium 4.2 mmol/L (3.4-5.0); Sodium 131 mmol/L (137-145)
[2019-06-17] MEDS: ENOXAPARIN 40 MG/0.4 ML SYRINGE SUB-Q (09:53)
[2019-06-17] MEDS: POTASSIUM CHLORIDE INJ 10 MEQ in DEXTROSE 5%/0.45% SOD CHL 1,000 ML 100 MEQ IV CONT ×2 (10:33→20:19)
[2019-06-17] MEDS: HYDROMORPHONE HCL 1 MG/ML INJ 0.5 MG IV PUSH ×3 (12:27→20:29)
--- NOTE | 2019-06-17 14:08 | PM.IMPN ---
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 Status: Chronic Assessment and Plan: Pt is on brilinta for CAD, orals on hold, pt has a ileus (4) Acute appendicitis with perforation and generalized peritonitis: Qualifiers: Appendicitis abscess presence: without abscess Appendicitis gangrene presence: unspecified whether gangrene present Qualified Code(s): K35.20 - Acute appendicitis with generalized peritonitis, without abscess Code(s): K35.20 - Acute appendicitis with generalized peritonitis, without abscess Status: Acute Assessment and Plan: Post op day 2 laparoscopic appendectomy for perforated appendicitis, pt has NGtube, pt has a ileus, KUB ordered for tomorrow (5) Hyponatremia: Code(s): E87.1 - Hypo-osmolality and hyponatremia Status: Acute Assessment and Plan: Pt is on fluids continue to monitor kidney function, pt is NPO on iv fluids Subjective Date/time seen: 06/17/19 14:08 Interval history: Dewayne Pérez is a 69 year old male who presented to the emergency department tonight with severe abdominal pain. Sp laparoscopic appendectomy for perforated appendicitis on CT scan, pt has history of cad with stent x1 placed in 2019 on Brilinta. otherwise history of htn and hld. pt developed ileus, has NG tube in situ today, post op day 2. Review of Systems Gastrointestinal: Comments: Abdominal distension Exam Const: General: well developed Nutritional Appearance: well nourished HENMT: Head: normocephalic Eyes: General: appearance normal, both eyes and all related structures Pupils: Equal, round and reactive pupils present Neck: Neck: supple Chest: Chest palpation & inspection: normal inspection of the chest Resp: Effort & Inspection: normal respiratory effort Auscultation: clear to auscultation bilaterally Cardio: Jugular venous distension: no JVD Rhythm: regular rhythm Heart sounds: S1 normal heart sound present and S2 normal heart sound present GI: Inspection: normal to inspection Auscultation: normal bowel sounds Objective Data Vital Signs Vital Signs: Vital Signs - 24 hr 06/16/19 16:00 06/16/19 18:00 06/16/19 20:00 Temperature 37.0 C 36.7 C Pulse Rate 84 82 85 Respiratory Rate 20 16 Blood Pressure 122/54 L 119/63 Pulse Oximetry 93 93 06/16/19 22:00 06/16/19 22:17 06/17/19 00:26 Temperature 37.2 C Pulse Rate 85 100 89 Respiratory Rate 16 18 Blood Pressure 136/72 Pulse Oximetry 90 90 06/17/19 04:00 06/17/19 06:00 06/17/19 08:00 Temperature 36.4 C L Pulse Rate 91 85 81 Respiratory Rate 18 Blood Pressure 152/82 H Pulse Oximetry 91 06/17/19 10:01 06/17/19 12:00 Temperature 36.6 C Pulse Rate 89 86 Respiratory Rate 16 Blood Pressure 146/68 H Pulse Oximetry 91 Intake/Output Intake/Output: Intake & Output 06/14/19 06/15/19 06/16/19 06/17/19 23:59 23:59 23:59 23:59 Intake Total 2050 4740 1250 Output Total 130 1640 1360 Balance 1920 3100 -110 Meds/Results Medications: Active Medications Generic Name Dose Route Start Last Admin Trade Name Freq PRN Reason Stop Dose Admin Atorvastatin Calcium 80 mg 06/16/19 21:00 06/16/19 20:57 Lipitor PO 07/16/19 21:01 80 mg HS VERONICA Administration Enoxaparin Sodium 40 mg 06/16/19 09:00 06/17/19 09:53 Lovenox SUB-Q 40 mg DAILY VERONICA Administration Hydromorphone HCl 0.5 mg 06/16/19 00:11 0
[2019-06-18] VITALS (10 sets, daily range): BP systolic 133–144; BP diastolic 67–71; PULSE 68–113; RESP 16–20; TEMP 36.5–37.1; O2SAT 94–96
[2019-06-18] MEDS: HYDROMORPHONE HCL 1 MG/ML INJ 0.5 MG IV PUSH ×4 (06:16→20:18)
[2019-06-18] MEDS: POTASSIUM CHLORIDE INJ 10 MEQ in DEXTROSE 5%/0.45% SOD CHL 1,000 ML 100 MEQ IV CONT (06:17)
[2019-06-18 06:30] LABS: Hematocrit 37.4 % (42.0-52.0); Hemoglobin 11.8 g/dL (14.0-18.0); Mean Corpuscular HGB Conc 31.6 g/dl (32-36); Mean Corpuscular Hemoglobin 27.3 pg (26-34); Mean Corpuscular Volume 86.6 fl (80-100); Platelet Count Result 239 k/mm3 (150-375); Red Blood Count 4.32 M/mm3 (4.6-6.20); Red Cell Distribution Width 13.7 % (11.5-14.5)
[2019-06-18 06:45] LABS: Blood Urea Nitrogen 25 mg/dL (9-20); Calcium 8.5 mg/dL (8.4-10.2); Carbon Dioxide 27 mmol/L (22-30); Chloride 97 mmol/L (98-107); Estimated CRCL calculation 64 ml/min; Estimated Glomerular Filt Rate > 60; Glucose 148 mg/dL (75-110); Potassium 4.3 mmol/L (3.4-5.0); Sodium 132 mmol/L (137-145)
--- NOTE | 2019-06-18 07:55 | PM.PNGS ---
Progress Note: A&P Assessment and Plan (1) Acute appendicitis with perforation and generalized peritonitis: Onset Date: ~06/15/19 Qualifiers: Appendicitis abscess presence: without abscess Appendicitis gangrene presence: unspecified whether gangrene present Qualified Code(s): K35.20 - Acute appendicitis with generalized peritonitis, without abscess Code(s): K35.20 - Acute appendicitis with generalized peritonitis, without abscess Status: Acute Assessment and Plan: Patient progressing slowly. Appears to have postoperative ileus. Will need to wait this out. We continue strict I&O and encourage patient to walk in the hallways and use IS. (2) Postoperative ileus: Onset Date: 06/17/19 Code(s): K91.89 - Other postprocedural complications and disorders of digestive system; K56.7 - Ileus, unspecified Status: Acute Assessment and Plan: Patient has NG tube in place and is NPO. Will give this some time. No need to repeat x-rays at this time. (3) Hyponatremia: Code(s): E87.1 - Hypo-osmolality and hyponatremia Status: Acute Assessment and Plan: Patient currently on D5 half normal saline with 10 mEq of potassium per L. Will change him to D5 normal saline with the same potassium. (4) Hypertension: Code(s): I10 - Essential (primary) hypertension Status: Chronic Assessment and Plan: IV or transdermal medication as per hospitalist's until patient can resume p.o. intake. (5) CAD (coronary artery disease): Code(s): I25.10 - Atherosclerotic heart disease of [place] coronary artery without angina pectoris Status: Chronic Subjective Subjective Date/Time Seen: 06/18/19 07:55 Post Op day: 2 Patient reports: no new complaints Interval history: Patient denies much abdominal pain. No flatus or bowel movement yet. Now wearing oxygen and states that he believes his O2 saturation was slightly low during the night. Could not urinate adequately and Stafford catheter replace last evening. Review of Systems Constitutional: Constitutional: Reports no additional constitutional complaints ENT: Reports other (Mucous Membranes moist.) Cardiovascular: Cardiovascular: Denies dyspnea Respiratory: Respiratory: Denies pain on inspiration and Denies dyspnea Musculoskeletal: Musculoskeletal: Reports other (No calf swelling or edema) Integumentary/Breasts: Skin/Breast: Reports system reviewed and no additional complaints, except as docu Exam Resp: Effort & Inspection: normal respiratory effort and able to speak in complete sentences Auscultation: clear to auscultation bilaterally Percussion: percussion normal GI: Inspection: distended and incision (Abdominal incisions clean/dry/intact.) Auscultation: Hypoactive bowel sounds present Other: SUSANA drain with slightly cloudy serosanguineous drainage. Objective Data Vital Signs Vital Signs: Vital Signs - 24 hr 06/17/19 08:00 06/17/19 10:01 06/17/19 12:00 Temperature 36.6 C Pulse Rate 81 89 86 Respiratory Rate 16 Blood Pressure 146/68 H Pulse Oximetry 91 06/17/19 14:43 06/17/19 16:00 06/17/19 20:00 Temperature 37.2 C Pulse Rate 91 87 88 Respiratory Rate 18 Blood Pressure 146/80 H Pulse Oximetry 97 06/17/19 20:15 06/17/19 21:49 06/18/19 00:00 Temperature 36.7 C Pulse Rate 84 90 83 Respiratory Rate 18 18 Blood Pressure 121/74 Pulse Oximetry 88 L 96 06/18/19 04:00 06/18/19 06:00 Temperature 36.6 C Pulse Rate 75 80 Respiratory Rate 20 Blood Pressure 133/71 Pulse Oximetry 94 Intake/Output Intake/Output: Intake & Output 06/15/19 06/16/19 06/17/19 06/18/19 23:59 23:59 23:59 23:59 Intake Total 2050 4740 2950 1050 Output Total 130 1640 2580 1220 Balance 1920 3100 370 -170 Meds/Results Medications: Active Medications Generic Name Dose Route Start Last Admin Trade Name Freq PRN Reason Stop Dose Admin Atorvastatin Calcium 80 mg
[2019-06-18] MEDS: ENOXAPARIN 40 MG/0.4 ML SYRINGE SUB-Q (08:39)
[2019-06-18] MEDS: PANTOPRAZOLE SODIUM IV 40 MG VIAL IV PUSH (08:40)
--- NOTE | 2019-06-18 13:33 | PM.IMPN ---
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 Status: Chronic Assessment and Plan: Pt is on brilinta for CAD, on hold presently (4) Acute appendicitis with perforation and generalized peritonitis: Onset Date: ~06/15/19 Qualifiers: Appendicitis abscess presence: without abscess Appendicitis gangrene presence: unspecified whether gangrene present Qualified Code(s): K35.20 - Acute appendicitis with generalized peritonitis, without abscess Code(s): K35.20 - Acute appendicitis with generalized peritonitis, without abscess Status: Acute Assessment and Plan: Post op day 3 laparoscopic appendectomy for perforated appendicitis, doing well apart from resolving ileus (5) Hyponatremia: Code(s): E87.1 - Hypo-osmolality and hyponatremia Status: Acute Assessment and Plan: Pt is on fluids continue to monitor kidney function, pt had catheter reinserted due to urinary retention last night continue to watch UO Subjective Date/time seen: 06/18/19 13:33 Interval history: Dewayne Pérez is a 69 year old male who presented to the emergency department tonight with severe abdominal pain. Sp laparoscopic appendectomy for perforated appendicitis on CT scan, pt has history of cad with stent x1 placed in 2019 on Brilinta. otherwise history of htn and hld. pt developed ileus, has NG tube in situ today, post op day 3. Adviced to walk her halls today. Review of Systems Gastrointestinal: Comments: Abdominal distension Exam Const: General: well developed Nutritional Appearance: well nourished HENMT: Head: normocephalic Eyes: General: appearance normal, both eyes and all related structures Pupils: Equal, round and reactive pupils present Neck: Neck: supple Chest: Chest palpation & inspection: normal inspection of the chest Resp: Effort & Inspection: normal respiratory effort Auscultation: clear to auscultation bilaterally Cardio: Jugular venous distension: no JVD Rhythm: regular rhythm Heart sounds: S1 normal heart sound present and S2 normal heart sound present GI: Inspection: distended and other (decreased bowel sounds ) Skin: General skin exam: normal color and dry skin Neuro: Cranial nerves: Yes CN's II-XII intact bilaterally and Yes Equal, round and reactive pupils present Cognition (Neuro): normal cognition Speech: normal speech Motor exam (neuro): 5/5 motor strength present throughout Extrem: General: normal to inspection Psych: Appearance: grossly normal Mental Status: mental status grossly normal Objective Data Vital Signs Vital Signs: Vital Signs - 24 hr 06/17/19 14:43 06/17/19 16:00 06/17/19 20:00 Temperature 37.2 C Pulse Rate 91 87 88 Respiratory Rate 18 Blood Pressure 146/80 H Pulse Oximetry 97 06/17/19 20:15 06/17/19 21:49 06/18/19 00:00 Temperature 36.7 C Pulse Rate 84 90 83 Respiratory Rate 18 18 Blood Pressure 121/74 Pulse Oximetry 88 L 96 06/18/19 04:00 06/18/19 06:00 06/18/19 08:00 Temperature 36.6 C Pulse Rate 75 80 72 Respiratory Rate 20 Blood Pressure 133/71 Pulse Oximetry 94 06/18/19 10:10 06/18/19 12:00 Temperature Pulse Rate 80 Respiratory Rate Blood Pressure Pulse Oximetry 94 Intake/Output Intake/Output: Intake & Output 06/15/19 06/16/19 06/17/19 06/18/19 23:59 23:59 23:59 23:59 Intake Total 2050 4740 2950 1100 Output Total 130 1640 25
[2019-06-19] VITALS (11 sets, daily range): BP systolic 121–130; BP diastolic 57–64; PULSE 7–95; RESP 16–18; TEMP 37–37.6; O2SAT 90–99
[2019-06-19] MEDS: HYDROMORPHONE HCL 1 MG/ML INJ 0.5 MG IV PUSH ×4 (04:13→19:09)
[2019-06-19 05:59] LABS: Hemoglobin 9.9 g/dL (14.0-18.0); Mean Corpuscular HGB Conc 30.9 g/dl (32-36); Mean Corpuscular Hemoglobin 27.3 pg (26-34); Mean Corpuscular Volume 88.4 fl (80-100); Mean Platelet Volume 9.7 fl (7.4-10.4); Platelet Count Result 226 k/mm3 (150-375); Red Blood Count 3.62 M/mm3 (4.6-6.20); Red Cell Distribution Width 13.8 % (11.5-14.5); White Blood Count 10.8 K/mm3 (4.5-10.0)
[2019-06-19 06:04] LABS: Potassium 4.1 mmol/L (3.4-5.0)
[2019-06-19 06:09] LABS: Blood Urea Nitrogen 22 mg/dL (9-20); Calcium 8.2 mg/dL (8.4-10.2); Carbon Dioxide 27 mmol/L (22-30); Chloride 101 mmol/L (98-107); Estimated CRCL calculation 71 ml/min; Estimated Glomerular Filt Rate > 60; Glucose 111 mg/dL (75-110); Sodium 134 mmol/L (137-145)
[2019-06-19] MEDS: ENOXAPARIN 40 MG/0.4 ML SYRINGE SUB-Q (08:27)
[2019-06-19] MEDS: PANTOPRAZOLE SODIUM IV 40 MG VIAL IV PUSH (08:27)
--- NOTE | 2019-06-19 08:49 | PM.PNGS ---
Progress Note: A&P Assessment and Plan (1) Acute appendicitis with perforation and generalized peritonitis: Onset Date: ~06/15/19 Qualifiers: Appendicitis abscess presence: without abscess Appendicitis gangrene presence: unspecified whether gangrene present Qualified Code(s): K35.20 - Acute appendicitis with generalized peritonitis, without abscess Code(s): K35.20 - Acute appendicitis with generalized peritonitis, without abscess Status: Acute Assessment and Plan: Patient progressing slowly. Appears to have postoperative ileus. Will need to wait this out. We continue strict I&O and encourage patient to walk in the hallways and use IS. (2) Postoperative ileus: Onset Date: 06/17/19 Code(s): K91.89 - Other postprocedural complications and disorders of digestive system; K56.7 - Ileus, unspecified Status: Acute Assessment and Plan: Patient has NG tube in place and is NPO. Will give this some time. Will put milk a magnesia down NG x1 today. Begin clamping routine on NG during the daytime and try Dulcolax suppository to stimulate the bowels. (3) Hyponatremia: Code(s): E87.1 - Hypo-osmolality and hyponatremia Status: Acute Assessment and Plan: Patient currently on D5 normal saline with 10 mEq of potassium per L. electrolytes improved but sodium still slightly low at 134. Hopefully this will improve with continued use of normal saline and then as patient resumes diet. (4) Hypertension: Code(s): I10 - Essential (primary) hypertension Status: Chronic Assessment and Plan: IV or transdermal medication as per hospitalist's until patient can resume p.o. intake. (5) CAD (coronary artery disease): Code(s): I25.10 - Atherosclerotic heart disease of [place] coronary artery without angina pectoris Status: Chronic Subjective Subjective Date/Time Seen: 06/19/19 08:49 Post Op day: 3 Patient reports: no new complaints, feels better, no flatus and no bowel movement Interval history: Patient states that he walked in the hallway 3 times yesterday. States he is not nauseated. Still feels bloated. Review of Systems Constitutional: Constitutional: Reports no additional constitutional complaints, Denies chills and Denies fever(s) Cardiovascular: Cardiovascular: Denies chest pain Respiratory: Respiratory: Denies dyspnea Gastrointestinal: Gastrointestinal: Denies abdominal pain, Denies nausea and Denies vomiting Genitourinary: Comments: Had urinary retention so has Stafford catheter in place. Urine output adequate. Integumentary/Breasts: Skin/Breast: Reports system reviewed and no additional complaints, except as docu Exam Resp: Effort & Inspection: normal respiratory effort and able to speak in complete sentences Auscultation: clear to auscultation bilaterally Percussion: percussion normal GI: Inspection: distended and incision (Abdominal incisions clean/dry/intact.) Auscultation: Hypoactive bowel sounds present Other: SUSANA drain with serosanguineous drainage. Less drainage over the last 24 hours. Psych: Mental Status: mental status grossly normal Attitude: cooperative Thought process: Normal thought process present Objective Data Vital Signs Vital Signs: Vital Signs - 24 hr 06/18/19 10:10 06/18/19 12:00 06/18/19 14:38 Temperature 36.5 C Pulse Rate 80 76 Respiratory Rate 16 Blood Pressure 144/69 H Pulse Oximetry 94 96 06/18/19 16:00 06/18/19 20:00 06/18/19 22:00 Temperature 37.1 C Pulse Rate 68 113 H 73 Respiratory Rate 18 Blood Pressure 138/67 Pulse Oximetry 96 06/19/19 00:00 06/19/19 04:00 06/19/19 06:00 Temperature 37.6 C H Pulse Rate 67 72 72 Respiratory Rate 18 Blood Pressure 129/59 L Pulse Oximetry 94 Intake/Output Intake/Output: Intake & Output 06/16/19 06/17/19 06/18/19 06/19/19 23:59 23:59 23:59 23:59 Intake Total 4740 2950 2200 1055 Output Total 0012 4380 1890
[2019-06-19] MEDS: BISACODYL 10 MG SUPPOSITORY RECTAL (09:28)
[2019-06-19] MEDS: MAGNESIUM HYDROXIDE SUSP 30 ML UDC FEED TUBE (09:34)
--- NOTE | 2019-06-19 12:21 | PM.IMPN ---
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 Status: Chronic Assessment and Plan: Pt is on brilinta for CAD, on hold presently (4) Acute appendicitis with perforation and generalized peritonitis: Onset Date: ~06/15/19 Qualifiers: Appendicitis abscess presence: without abscess Appendicitis gangrene presence: unspecified whether gangrene present Qualified Code(s): K35.20 - Acute appendicitis with generalized peritonitis, without abscess Code(s): K35.20 - Acute appendicitis with generalized peritonitis, without abscess Status: Acute Assessment and Plan: Post op day 4 laparoscopic appendectomy for perforated appendicitis, doing well apart from resolving ileus, pt walking halls, awaiting bowel movement. Surgery rounding (5) Hyponatremia: Code(s): E87.1 - Hypo-osmolality and hyponatremia Status: Acute Assessment and Plan: Pt is on fluids continue to monitor kidney function, potassium corrected, continue to watch UO Subjective Date/time seen: 06/19/19 12:21 Interval history: Dewayne Pérez is a 69 year old male who presented to the emergency department tonight with severe abdominal pain. Sp laparoscopic appendectomy for perforated appendicitis on CT scan, pt has history of cad with stent x1 placed in 2019 on Brilinta. otherwise history of htn and hld. pt developed ileus, has NG tube in situ placed, post op day 4. Advised to walk her halls today. Pt will try suppository today to help him move his bowels. Review of Systems Review of Systems: All systems reviewed & are unremarkable except as noted in HPI and below Gastrointestinal: Gastrointestinal: Reports abdominal pain Exam Const: General: well developed Nutritional Appearance: well nourished HENMT: Head: normocephalic Eyes: General: appearance normal, both eyes and all related structures Pupils: Equal, round and reactive pupils present Neck: Neck: supple Chest: Chest palpation & inspection: normal inspection of the chest Resp: Effort & Inspection: normal respiratory effort Auscultation: clear to auscultation bilaterally Cardio: Jugular venous distension: no JVD Rhythm: regular rhythm Heart sounds: S1 normal heart sound present and S2 normal heart sound present GI: Inspection: distended and other (decreased bowel sounds ) Auscultation: normal bowel sounds Skin: General skin exam: normal color and dry skin Neuro: Cranial nerves: Yes CN's II-XII intact bilaterally and Yes Equal, round and reactive pupils present Cognition (Neuro): normal cognition Speech: normal speech Motor exam (neuro): 5/5 motor strength present throughout Extrem: General: normal to inspection Psych: Appearance: grossly normal Mental Status: mental status grossly normal Objective Data Vital Signs Vital Signs: Vital Signs - 24 hr 06/18/19 14:38 06/18/19 16:00 06/18/19 20:00 Temperature 36.5 C Pulse Rate 76 68 113 H Respiratory Rate 16 Blood Pressure 144/69 H Pulse Oximetry 96 06/18/19 22:00 06/19/19 00:00 06/19/19 04:00 Temperature 37.1 C Pulse Rate 73 67 72 Respiratory Rate 18 Blood Pressure 138/67 Pulse Oximetry 96 06/19/19 06:00 06/19/19 08:00 Temperature 37.6 C H Pulse Rate 72 66 Respiratory Rate 18 Blood Pressure 129/59 L Pulse Oximetry 94 Intake/Output Intake/Output: Intake & Output 01
[2019-06-19] MEDS: ATORVASTATIN 40 MG TABLET 80 MG PO (21:06)
[2019-06-20] VITALS (10 sets, daily range): BP systolic 123–149; BP diastolic 59–66; PULSE 69–82; RESP 18–20; TEMP 36.9–37.3; O2SAT 94
[2019-06-20] MEDS: HYDROMORPHONE HCL 1 MG/ML INJ IV PUSH ×4 (00:28→20:10)
[2019-06-20] MEDS: ENOXAPARIN 40 MG/0.4 ML SYRINGE SUB-Q (08:08)
[2019-06-20] MEDS: PANTOPRAZOLE SODIUM IV 40 MG VIAL IV PUSH (08:08)
--- NOTE | 2019-06-20 10:49 | PM.PNGS ---
Progress Note: A&P Assessment and Plan (1) Acute appendicitis with perforation and generalized peritonitis: Onset Date: ~06/15/19 Qualifiers: Appendicitis abscess presence: without abscess Appendicitis gangrene presence: unspecified whether gangrene present Qualified Code(s): K35.20 - Acute appendicitis with generalized peritonitis, without abscess Code(s): K35.20 - Acute appendicitis with generalized peritonitis, without abscess Status: Acute Assessment and Plan: Continue IV Zosyn Monitor SUSANA drain output Ileus seems to be resolving Continue to increase activity (2) Postoperative ileus: Onset Date: 06/17/19 Code(s): K91.89 - Other postprocedural complications and disorders of digestive system; K56.7 - Ileus, unspecified Status: Acute Assessment and Plan: Patient clinically improving and bowel function returning, although abdomen seems somewhat distended. Will try removing the NG tube today. Start clear liquids. Encouraged to keep walking the halls. (3) Hyponatremia: Code(s): E87.1 - Hypo-osmolality and hyponatremia Status: Acute Assessment and Plan: Improving and hopefully this continues to improve with advancing his diet. (4) Hypertension: Code(s): I10 - Essential (primary) hypertension Status: Chronic (5) CAD (coronary artery disease): Code(s): I25.10 - Atherosclerotic heart disease of [place] coronary artery without angina pectoris Status: Chronic Subjective Subjective Date/Time Seen: 06/20/19 10:30 Post Op day: 5 (lap appy) Patient reports: no new complaints, pain is less, flatus and bowel movement Interval history: Patient seen and examined. Per the nurse, the NG tube has been clamped for 2 hours. Patient reports tolerating the clamping trial without any nausea or vomiting. He feels his bloating has improved today. Reports flatus and two bowel movements this morning. Has been walking the halls and tolerating this. No other complaints at this time. Review of Systems Review of Systems: All systems reviewed & are unremarkable except as noted in HPI and below Exam Const: General: comfortable, alert and awake; No acute distress GI: Inspection: distended and incision (Abdominal incisions clean/dry/intact.) GI Palp: Yes Firmness to palpation present (GI), Yes Tenderness to palpation present (GI) (RLQ) and No Rebound tenderness present Auscultation: Hypoactive bowel sounds present Other: SUSANA drain with serosanguineous drainage. Skin: General skin exam: normal color Neuro: General: moves all extremities and no focal motor deficits Extrem: General: normal to inspection, no calf tenderness and no edema Psych: Mental Status: mental status grossly normal Attitude: cooperative Objective Data Vital Signs Vital Signs: Vital Signs - 24 hr 06/19/19 12:00 06/19/19 14:00 06/19/19 15:00 Temperature 37.1 C Pulse Rate 81 80 Respiratory Rate 16 Blood Pressure 121/64 Pulse Oximetry 99 90 06/19/19 16:00 06/19/19 20:29 06/19/19 21:23 Temperature 37.0 C Pulse Rate 95 7 L 77 Respiratory Rate 16 16 Blood Pressure 130/57 L Pulse Oximetry 90 96 06/19/19 22:05 06/20/19 01:30 06/20/19 04:00 Temperature Pulse Rate 80 75 69 Respiratory Rate Blood Pressure Pulse Oximetry 06/20/19 06:24 06/20/19 08:00 Temperature 37.3 C Pulse Rate 78 82 Respiratory Rate 20 Blood Pressure 149/59 H Pulse Oximetry 94 Intake/Output Intake/Output: Intake & Output 06/17/19 06/18/19 06/19/19 06/20/19 23:59 23:59 23:59 23:59 Intake Total 2950 2200 2790 1687 Output Total 2580 1890 1675 870 Balance 398 941 6665 817 Meds/Results Medications: Active Medications Generic Name Dose Route Start Last Admin Trade Name Freq PRN Reason Stop Dose Admin Atorvastatin Calcium 80 mg 06/16/19 21:00 06/19/19 21:06 Lipitor PO 07/16/19 21:01 80 mg HS VERONICA Administration Bisac
--- NOTE | 2019-06-20 16:15 | PM.IMPN ---
Progress Note: A&P Assessment and Plan (1) Hypertension: Code(s): I10 - Essential (primary) hypertension Status: Chronic Assessment and Plan: Pt is on iv fluids, oral Bp medications are on hold, iv Bp medications ordered in case of high BPs, will resume oral medication once able to take it (2) CAD (coronary artery disease): Code(s): I25.10 - Atherosclerotic heart disease of [place] coronary artery without angina pectoris Status: Chronic Assessment and Plan: Pt is on brilinta for CAD pt is also on metoprolol both are on hold presently, will resume oral medication once stable per surgery team (3) Anticoagulant long-term use: Code(s): 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 Status: Chronic Assessment and Plan: Pt is on brilinta for CAD, on hold presently (4) Acute appendicitis with perforation and generalized peritonitis: Onset Date: ~06/15/19 Qualifiers: Appendicitis abscess presence: without abscess Appendicitis gangrene presence: unspecified whether gangrene present Qualified Code(s): K35.20 - Acute appendicitis with generalized peritonitis, without abscess Code(s): K35.20 - Acute appendicitis with generalized peritonitis, without abscess Status: Acute Assessment and Plan: Dewayne Pérez is a 69 year old male who presented to the emergency department on 06/15 with severe abdominal pain. Sp laparoscopic appendectomy for perforated appendicitis on CT scan, pt has history of cad with stent x1 placed in 2019 on Brilinta. otherwise history of htn and hld. pt developed post op ileus, has NG tube in situ placed, post op day 5, patient had been walking in the corridor, this morning patient had 2 bowel movement, is a feeling better seen by surgery team and a G-tube was clamped for 2 hours which he was able to tolerate without nausea and vomiting, NG tube is out and patient is started on clear liquid, patient states the abdominal pain is better denies any fever or chills, will continue to monitor advanced his diet as tolerated (5) Hyponatremia: Code(s): E87.1 - Hypo-osmolality and hyponatremia Status: Acute Assessment and Plan: Most likely secondary to dehydration due to poor p.o. intake patient is being hydrated and sodium is trending continue to monitor Subjective Date/time seen: 06/20/19 16:15 Interval history: Dewayne Pérez is a 69 year old male who presented to the emergency department on 06/15 with severe abdominal pain. Sp laparoscopic appendectomy for perforated appendicitis on CT scan, pt has history of cad with stent x1 placed in 2019 on Brilinta. otherwise history of htn and hld. pt developed post op ileus, has NG tube in situ placed, post op day 5, patient had been walking in the corridor, this morning patient had 2 bowel movement, is a feeling better seen by surgery team and a G-tube was clamped for 2 hours which he was able to tolerate without nausea and vomiting, NG tube is out and patient is started on clear liquid, patient states the abdominal pain is better denies any fever or chills, will continue to monitor advanced his diet as tolerated Review of Systems Review of Systems: All systems reviewed & are unremarkable except as noted in HPI and below Exam Const: General: no acute distress and uncomfortable HENMT: General nose exam: Normal nares present Mouth: Yes moist mucous membranes Eyes: General: appearance normal, both eyes and all related structures Sclera: sclerae normal Neck: Neck: supple Resp: Effort & Inspection: normal respiratory effort Auscultation: clear to auscultation bilaterally Cardio: Rate: regular rate Rhythm: regular rhythm GI: Inspection: distended Other: Bowel sounds are faint diffusely tender Skin: General skin exam: normal color and no rashes or lesions noted Neuro: Speech: normal speech Sensory Exam: normal sensation Extrem: General: normal to inspect
[2019-06-20] MEDS: ATORVASTATIN 40 MG TABLET 80 MG PO (20:09)
[2019-06-21] VITALS (11 sets, daily range): BP systolic 135–143; BP diastolic 60–85; PULSE 64–88; RESP 14–20; TEMP 36.9–37.3; O2SAT 92–97
[2019-06-21] MEDS: HYDROMORPHONE HCL 1 MG/ML INJ IV PUSH ×5 (01:56→20:05)
[2019-06-21 06:21] LABS: Hematocrit 29.3 % (42.0-52.0); Hemoglobin 9.2 g/dL (14.0-18.0); Mean Corpuscular HGB Conc 31.4 g/dl (32-36); Mean Corpuscular Hemoglobin 27.4 pg (26-34); Mean Corpuscular Volume 87.2 fl (80-100); Mean Platelet Volume 9.3 fl (7.4-10.4); Platelet Count Result 271 k/mm3 (150-375); Red Blood Count 3.36 M/mm3 (4.6-6.20); Red Cell Distribution Width 13.9 % (11.5-14.5)
[2019-06-21 06:40] LABS: Blood Urea Nitrogen 15 mg/dL (9-20); Calcium 8.3 mg/dL (8.4-10.2); Carbon Dioxide 27 mmol/L (22-30); Chloride 101 mmol/L (98-107); Estimated CRCL calculation 90 ml/min; Estimated Glomerular Filt Rate > 60; Glucose 91 mg/dL (75-110); Magnesium 2.3 mg/dL (1.6-2.3); Potassium 3.9 mmol/L (3.4-5.0); Sodium 134 mmol/L (137-145)
[2019-06-21] MEDS: ENOXAPARIN 40 MG/0.4 ML SYRINGE SUB-Q (09:05)
[2019-06-21] MEDS: PANTOPRAZOLE SODIUM IV 40 MG VIAL IV PUSH (09:05)
[2019-06-21] MEDS: BISACODYL 10 MG SUPPOSITORY RECTAL (13:10)
--- NOTE | 2019-06-21 13:41 | PM.PNGS ---
Progress Note: A&P Assessment and Plan (1) Acute appendicitis with perforation and generalized peritonitis: Onset Date: ~06/15/19 Qualifiers: Appendicitis abscess presence: without abscess Appendicitis gangrene presence: unspecified whether gangrene present Qualified Code(s): K35.20 - Acute appendicitis with generalized peritonitis, without abscess Code(s): K35.20 - Acute appendicitis with generalized peritonitis, without abscess Status: Acute Assessment and Plan: Continue IV Zosyn Monitor SUSANA drain output Ileus seems to be resolving Continue to increase activity (2) Postoperative ileus: Onset Date: 06/17/19 Code(s): K91.89 - Other postprocedural complications and disorders of digestive system; K56.7 - Ileus, unspecified Status: Acute Assessment and Plan: Patient clinically improving and bowel function returning, although abdomen still distended and patient is feeling bloated today. Will keep him on clear liquids today and start daily Miralax. Encouraged to walk the halls at least 3 times daily. (3) Hyponatremia: Code(s): E87.1 - Hypo-osmolality and hyponatremia Status: Acute Assessment and Plan: Improving and hopefully this continues to improve with advancing his diet. (4) Hypertension: Code(s): I10 - Essential (primary) hypertension Status: Chronic (5) CAD (coronary artery disease): Code(s): I25.10 - Atherosclerotic heart disease of [place] coronary artery without angina pectoris Status: Chronic Subjective Subjective Date/Time Seen: 06/21/19 13:00 Post Op day: 6 (lap appy) Patient reports: tolerating liquids well and bowel movement Interval history: Patient seen and examined. Reports feeling a little more bloated today but denies nausea or vomiting. Reports walking the halls yesterday and already once today. Reports flatus and one small bowel movement today. No other complaints. Review of Systems Review of Systems: All systems reviewed & are unremarkable except as noted in HPI and below Exam Const: General: comfortable, no acute distress, alert and awake Orientation/consciousness: patient oriented x3 GI: Inspection: distended and incision (Abdominal incisions clean/dry/intact.) GI Palp: Yes Firmness to palpation present (GI), Yes Tenderness to palpation present (GI) (RLQ), No Guarding due to palpation present (GI) and No Rebound tenderness present Auscultation: normal bowel sounds Other: SUSANA drain with serosanguineous drainage in the bulb. Neuro: General: moves all extremities Cranial nerves: Yes CN's II-XII intact bilaterally Speech: normal speech Extrem: General: no calf tenderness and no edema Psych: Mental Status: mental status grossly normal Attitude: cooperative Thought process: Normal thought process present Thought content: Yes Normal thought content present Objective Data Vital Signs Vital Signs: Vital Signs - 24 hr 06/20/19 14:00 06/20/19 16:00 06/20/19 20:00 Temperature 36.9 C Pulse Rate 82 79 72 Respiratory Rate 20 Blood Pressure 146/65 H Pulse Oximetry 94 06/20/19 20:10 06/20/19 21:40 06/21/19 00:00 Temperature 36.9 C Pulse Rate 72 78 64 Respiratory Rate 18 Blood Pressure 123/66 Pulse Oximetry 94 06/21/19 04:00 06/21/19 05:51 06/21/19 08:00 Temperature 36.9 C Pulse Rate 68 71 88 Respiratory Rate 20 Blood Pressure 135/60 Pulse Oximetry 94 06/21/19 12:00 06/21/19 13:32 Temperature Pulse Rate 79 Respiratory Rate Blood Pressure Pulse Oximetry 93 Intake/Output Intake/Output: Intake & Output 06/18/19 06/19/19 06/20/19 06/21/19 23:59 23:59 23:59 23:59 Intake Total 2200 2790 3381 1174 Output Total 1890 1675 1670 250 Balance 310 1115 1711 924 Meds/Results Medications: Active Medications Generic Name Dose Route Start Last Admin Trade Name Freq PRN Reason Stop Dose Admin Albuterol/Ipratropium 1 puff 06/21/19
[2019-06-21] MEDS: polyethylene glycoL 3350 17 GM POWD.PACK PO (14:40)
--- NOTE | 2019-06-21 16:43 | PM.IMPN ---
Progress Note: A&P Assessment and Plan (1) Hypertension: Code(s): I10 - Essential (primary) hypertension Status: Chronic Assessment and Plan: Pt is on iv fluids, oral Bp medications are on hold, iv Bp medications ordered in case of high BPs, will resume oral medication once able to take it (2) CAD (coronary artery disease): Code(s): I25.10 - Atherosclerotic heart disease of [place] coronary artery without angina pectoris Status: Chronic Assessment and Plan: Pt is on brilinta for CAD pt is also on metoprolol both are on hold presently, will resume oral medication once stable per surgery team (3) Anticoagulant long-term use: Code(s): Z79.01 - qa internship (current) use of anticoagulants Status: Chronic Assessment and Plan: Pt is on brilinta for CAD, on hold presently (4) Acute appendicitis with perforation and generalized peritonitis: Onset Date: ~06/15/19 Qualifiers: Appendicitis abscess presence: without abscess Appendicitis gangrene presence: unspecified whether gangrene present Qualified Code(s): K35.20 - Acute appendicitis with generalized peritonitis, without abscess Code(s): K35.20 - Acute appendicitis with generalized peritonitis, without abscess Status: Acute Assessment and Plan: Dewayne Pérez is a 69 year old male who presented to the emergency department on 06/15 with severe abdominal pain. Sp laparoscopic appendectomy for perforated appendicitis on CT scan, pt has history of cad with stent x1 placed in 2019 on Brilinta. otherwise history of htn and hld. pt developed post op ileus, has NG tube in situ placed, post op day 5, patient had been walking in the corridor, on 2 patient had 2 bowel movement, is a feeling better seen by surgery team and a G-tube was clamped for 2 hours which he was able to tolerate without nausea and vomiting, NG tube was taken out and patient was started on clear liquid, today patient had another bowel movement his passing ladder care patient states the abdominal pain is better denies any fever or chills, patient seen by surgery team recommended to continue present management will continue to monitor reassess the patient tomorrow and advance his diet (5) Hyponatremia: Code(s): E87.1 - Hypo-osmolality and hyponatremia Status: Acute Assessment and Plan: Most likely secondary to dehydration due to poor p.o. intake patient is being hydrated and sodium is trending continue to monitor Subjective Date/time seen: 06/21/19 16:43 Interval history: Dewayne Pérez is a 69 year old male who presented to the emergency department on 06/15 with severe abdominal pain. Sp laparoscopic appendectomy for perforated appendicitis on CT scan, pt has history of cad with stent x1 placed in 2019 on Brilinta. otherwise history of htn and hld. pt developed post op ileus, has NG tube in situ placed, post op day 5, patient had been walking in the corridor, on 06/20 patient had 2 bowel movement, is a feeling better seen by surgery team and a G-tube was clamped for 2 hours which he was able to tolerate without nausea and vomiting, NG tube was taken out and patient was started on clear liquid, today patient had another bowel movement his passing ladder care patient states the abdominal pain is better denies any fever or chills, patient seen by surgery team recommended to continue present management will continue to monitor reassess the patient tomorrow and advance his diet Review of Systems Review of Systems: All systems reviewed & are unremarkable except as noted in HPI and below Exam Const: General: no acute distress, well developed and uncomfortable Nutritional Appearance: well nourished HENMT: Head: normocephalic General nose exam: Normal nares present Mouth: Yes moist mucous membranes Eyes: General: appearance normal, both eyes and all related structures Sclera: sclerae normal Neck: Neck: supple Chest: Chest
[2019-06-21] MEDS: ATORVASTATIN 40 MG TABLET 80 MG PO (20:02)
[2019-06-22] VITALS (16 sets, daily range): BP systolic 103–130; BP diastolic 54–68; PULSE 64–82; RESP 16–20; TEMP 36.9–37.6; O2SAT 90–96; BMI 24.1
[2019-06-22] MEDS: HYDROMORPHONE HCL 1 MG/ML INJ IV PUSH ×4 (02:16→20:21)
[2019-06-22 06:33] LABS: Hematocrit 29.9 % (42.0-52.0); Hemoglobin 9.3 g/dL (14.0-18.0); Mean Corpuscular HGB Conc 31.1 g/dl (32-36); Mean Corpuscular Volume 86.9 fl (80-100); Mean Platelet Volume 9.2 fl (7.4-10.4); Platelet Count Result 358 k/mm3 (150-375); Red Blood Count 3.44 M/mm3 (4.6-6.20); Red Cell Distribution Width 14.2 % (11.5-14.5); White Blood Count 14.5 K/mm3 (4.5-10.0)
[2019-06-22 06:56] LABS: Blood Urea Nitrogen 13 mg/dL (9-20); Calcium 8.5 mg/dL (8.4-10.2); Carbon Dioxide 27 mmol/L (22-30); Chloride 95 mmol/L (98-107); Estimated CRCL calculation 71 ml/min; Estimated Glomerular Filt Rate > 60; Glucose 109 mg/dL (75-110); Potassium 3.8 mmol/L (3.4-5.0); Sodium 132 mmol/L (137-145)
[2019-06-22] MEDS: lisinopriL 20 MG TABLET PO (09:20)
[2019-06-22] MEDS: ENOXAPARIN 40 MG/0.4 ML SYRINGE SUB-Q (09:20)
[2019-06-22] MEDS: PANTOPRAZOLE SODIUM IV 40 MG VIAL IV PUSH (09:20)
[2019-06-22] MEDS: ISOSORBIDE MONONITRATE 30 MG TAB.ER.24H PO (09:20)
[2019-06-22] MEDS: polyethylene glycoL 3350 17 GM POWD.PACK PO (09:20)
[2019-06-22] MEDS: METOPROLOL SUCCINATE EXT REL 50 MG TABCR PO (09:24)
--- NOTE | 2019-06-22 09:24 | PM.PNGS ---
Progress Note: A&P Assessment and Plan (1) Postoperative ileus: Onset Date: 06/17/19 Code(s): K91.89 - Other postprocedural complications and disorders of digestive system; K56.7 - Ileus, unspecified Status: Acute Assessment and Plan: Start Reglan and give a dose of Mag Citrate today Advance diet once less distended Increase activity (2) Acute appendicitis with perforation and generalized peritonitis: Onset Date: ~06/15/19 Qualifiers: Appendicitis abscess presence: without abscess Appendicitis gangrene presence: unspecified whether gangrene present Qualified Code(s): K35.20 - Acute appendicitis with generalized peritonitis, without abscess Code(s): K35.20 - Acute appendicitis with generalized peritonitis, without abscess Status: Acute Assessment and Plan: Continue Zosyn WBC elevated today, may be related to ileus Will continue to watch (3) Postoperative urinary retention: Code(s): N99.89 - Other postprocedural complications and disorders of genitourinary system; R33.8 - Other retention of urine Status: Acute Assessment and Plan: Stafford in place Voiding trial once less distended Subjective Subjective Date/Time Seen: 06/22/19 09:24 Passing flatus, but only small mucus BM yesterday. No nausea. No vomiting. Still has Stafford in place from postop urinary retention. On clear liquid diet. No fevers. Exam GI: Inspection: distended and other (SUSANA drain serous) Auscultation: normal bowel sounds Objective Data Vital Signs Vital Signs: Vital Signs - 24 hr 06/21/19 12:00 06/21/19 13:32 06/21/19 14:00 Temperature 37.3 C Pulse Rate 79 81 Respiratory Rate 14 Blood Pressure 143/66 H Pulse Oximetry 93 94 06/21/19 16:00 06/21/19 20:10 06/21/19 22:00 Temperature 37.3 C Pulse Rate 87 80 79 Respiratory Rate 16 Blood Pressure 139/85 Pulse Oximetry 97 06/21/19 22:02 06/22/19 00:00 06/22/19 04:00 Temperature Pulse Rate 74 70 Respiratory Rate Blood Pressure Pulse Oximetry 92 06/22/19 06:00 06/22/19 07:51 06/22/19 07:53 Temperature 37.6 C Pulse Rate 73 79 Respiratory Rate 18 Blood Pressure 126/68 130/58 L Pulse Oximetry 96 90 93 Intake/Output Intake/Output: Intake & Output 06/19/19 06/20/19 06/21/19 06/22/19 23:59 23:59 23:59 23:59 Intake Total 2790 3381 2949 900 Output Total 1675 1670 800 910 Balance 1115 1711 2149 -10 Meds/Results Medications: Active Medications Generic Name Dose Route Start Last Admin Trade Name Freq PRN Reason Stop Dose Admin Albuterol/Ipratropium 1 puff 06/21/19 12:00 06/22/19 07:50 Combivent Respimat INHALATION 1 puff QIDRT VERONICA Administration Atorvastatin Calcium 80 mg 06/16/19 21:00 06/21/19 20:02 Lipitor PO 07/16/19 21:01 80 mg HS VERONICA Administration Bisacodyl 10 mg 06/19/19 08:48 06/21/19 13:10 Dulcolax Suppository RECTAL 10 mg QAM PRN Administration Constipation Enoxaparin Sodium 40 mg 06/16/19 09:00 06/21/19 09:05 Lovenox SUB-Q 40 mg DAILY VERONICA Administration Hydralazine HCl 10 mg 06/17/19 17:28 Apresoline Hcl Inj IV PUSH Q8H PRN Blood Pressure - High >160/100 Hydromorphone HCl 0.5 mg 06/16/19 00:11 06/19/19 19:09 Dilaudid Inj IV PUSH 0.5 mg Q2H PRN Administration Pain Rated 4-6 Hydromorphone HCl 1 mg 06/16/19 00:11 06/22/19 02:16 Dilaudid Inj IV PUSH 1 mg Q2H PRN Administration Pain Rated 7-10 Piperacillin/Tazobactam/Dextrose 3.375 gm in 50 mls @ 100 mls/hr 06/16/19 02:00 06/22/19 02:40 Zosyn 3.375 Gm/D5w 50ml Pm IVPB Infused Q6H VERONICA Infusion Potassium Chloride 10 meq/ 1,005 mls @ 75 mls/hr 06/18/19 16:00 06/21/19 23:10 Dextrose/Sodium Chloride IV CONT Infused .[id number] VERONICA Infusion Isosorbide Mononitrate 30 mg 06/17/19 09:00 06/17/19 12:34 Imdur PO Not Given QAM [facility] Lisinopril 20 mg 06/17/19 09:00 06/17
[2019-06-22] MEDS: MAGNESIUM CITRATE 300 ML BTL 150 ML PO (11:49)
[2019-06-22] MEDS: METOCLOPRAMIDE HCL INJ 10 MG/2 ML VIAL IV PUSH ×2 (11:49→19:21)
--- NOTE | 2019-06-22 12:42 | PM.IMPN ---
Progress Note: A&P Assessment and Plan (1) Hypertension: Code(s): I10 - Essential (primary) hypertension Status: Chronic Assessment and Plan: Pt is on iv fluids, oral Bp medications are on hold, iv Bp medications ordered in case of high BPs, will resume oral medication once able to take it (2) CAD (coronary artery disease): Code(s): I25.10 - Atherosclerotic heart disease of [place] coronary artery without angina pectoris Status: Chronic Assessment and Plan: Pt is on brilinta for CAD pt is also on metoprolol both are on hold presently, will resume oral medication once stable per surgery team (3) Anticoagulant long-term use: Code(s): Z79.01 - medical terminologist (current) use of anticoagulants Status: Chronic Assessment and Plan: Pt is on brilinta for CAD, on hold presently (4) Acute appendicitis with perforation and generalized peritonitis: Onset Date: ~06/15/19 Qualifiers: Appendicitis abscess presence: without abscess Appendicitis gangrene presence: unspecified whether gangrene present Qualified Code(s): K35.20 - Acute appendicitis with generalized peritonitis, without abscess Code(s): K35.20 - Acute appendicitis with generalized peritonitis, without abscess Status: Acute Assessment and Plan: Dewayne Pérez is a 69 year old male who presented to the emergency department on 06/15 with severe abdominal pain. Sp laparoscopic appendectomy for perforated appendicitis on CT scan, pt has history of cad with stent x1 placed in 2019 on Brilinta. otherwise history of htn and hld. pt developed post op ileus, has NG tube in situ placed, post op day 5, patient had been walking in the corridor, on 2/ patient had 2 bowel movement, is a feeling better seen by surgery team and a G-tube was clamped for 2 hours which he was able to tolerate without nausea and vomiting, NG tube was taken out and patient was started on clear liquid, today patient had another bowel movement his passing gas, patient states the abdominal pain is better denies any fever or chills, patient seen by surgery team recommended to continue present management and added magcitrate, to help stimulate his bowl and to have BM, will continue to monitor reassess the patient tomorrow and may advance his diet (5) Hyponatremia: Code(s): E87.1 - Hypo-osmolality and hyponatremia Status: Acute Assessment and Plan: Most likely secondary to dehydration due to poor p.o. intake patient is being hydrated and sodium is trending continue to monitor Subjective Date/time seen: 06/22/19 12:42 Interval history: Dewayne Pérez is a 69 year old male who presented to the emergency department on 06/15 with severe abdominal pain. Sp laparoscopic appendectomy for perforated appendicitis on CT scan, pt has history of cad with stent x1 placed in 2019 on Brilinta. otherwise history of htn and hld. pt developed post op ileus, has NG tube in situ placed, post op day 5, patient had been walking in the corridor, on 06/20 patient had 2 bowel movement, is a feeling better seen by surgery team and a G-tube was clamped for 2 hours which he was able to tolerate without nausea and vomiting, NG tube was taken out and patient was started on clear liquid, today patient had another bowel movement his passing gas, patient states the abdominal pain is better denies any fever or chills, patient seen by surgery team recommended to continue present management and added magcitrate, to help stimulate his bowl and to have BM, will continue to monitor reassess the patient tomorrow and may advance his diet Review of Systems Review of Systems: All systems reviewed & are unremarkable except as noted in HPI and below Gastrointestinal: Gastrointestinal: Reports abdominal pain Exam Const: General: no acute distress, well developed and uncomfortable Nutritional Appearance: well nourished HENMT: Head: normocephalic General nose exam
--- NOTE | 2019-06-22 14:03 | PC.NURSE ---
On 06/22/19, the student, [ Obdulia Vital], provided care and completed [facility] documentation on this patient. I have reviewed the student's documentation and agree with the findings.
[2019-06-22] MEDS: SODIUM CHLORIDE 0.9% IV 500 ML 999 ML IV CONT (15:56)
[2019-06-22] MEDS: ONDANSETRON INJ 4 MG/2 ML VIAL IV PUSH (15:56)
[2019-06-22] MEDS: ATORVASTATIN 40 MG TABLET 80 MG PO (20:15)
[2019-06-23] VITALS (11 sets, daily range): BP systolic 121–143; BP diastolic 54–72; PULSE 60–80; RESP 16–18; TEMP 36.6–37.1; O2SAT 90–97
[2019-06-23] MEDS: METOCLOPRAMIDE HCL INJ 10 MG/2 ML VIAL IV PUSH ×4 (00:30→17:46)
[2019-06-23] MEDS: HYDROMORPHONE HCL 1 MG/ML INJ IV PUSH ×6 (02:15→18:33)
[2019-06-23] MEDS: ONDANSETRON INJ 4 MG/2 ML VIAL IV PUSH ×2 (02:15→06:00)
[2019-06-23 06:30] LABS: Hematocrit 30.5 % (42.0-52.0); Hemoglobin 9.5 g/dL (14.0-18.0); Mean Corpuscular HGB Conc 31.1 g/dl (32-36); Mean Corpuscular Hemoglobin 27.2 pg (26-34); Mean Corpuscular Volume 87.4 fl (80-100); Mean Platelet Volume 9.1 fl (7.4-10.4); Platelet Count Result 450 k/mm3 (150-375); Red Blood Count 3.49 M/mm3 (4.6-6.20); Red Cell Distribution Width 14.4 % (11.5-14.5); White Blood Count 11.2 K/mm3 (4.5-10.0)
[2019-06-23 06:44] LABS: Blood Urea Nitrogen 16 mg/dL (9-20); Calcium 8.4 mg/dL (8.4-10.2); Carbon Dioxide 29 mmol/L (22-30); Chloride 96 mmol/L (98-107); Estimated CRCL calculation 79 ml/min; Estimated Glomerular Filt Rate > 60; Glucose 125 mg/dL (75-110); Potassium 4.1 mmol/L (3.4-5.0); Sodium 134 mmol/L (137-145)
[2019-06-23] MEDS: polyethylene glycoL 3350 17 GM POWD.PACK PO (08:13)
[2019-06-23] MEDS: ENOXAPARIN 40 MG/0.4 ML SYRINGE SUB-Q (08:16)
[2019-06-23] MEDS: PANTOPRAZOLE SODIUM IV 40 MG VIAL IV PUSH (08:20)
[2019-06-23 08:33] LABS: Glucose Point of Care 120 (65-105)
--- NOTE | 2019-06-23 10:32 | PM.PNGS ---
Progress Note: A&P Assessment and Plan (1) Postoperative ileus: Onset Date: 06/17/19 Code(s): K91.89 - Other postprocedural complications and disorders of digestive system; K56.7 - Ileus, unspecified Status: Acute Assessment and Plan: More distended today and having more abdominal pain. Ordered abdominal x-ray - this showed dilated small bowel consistent with an ileus. Will make the patient NPO and order NG to low intermittent suction. Encouraged to walk the halls. (2) Acute appendicitis with perforation and generalized peritonitis: Onset Date: ~06/15/19 Qualifiers: Appendicitis abscess presence: without abscess Appendicitis gangrene presence: unspecified whether gangrene present Qualified Code(s): K35.20 - Acute appendicitis with generalized peritonitis, without abscess Code(s): K35.20 - Acute appendicitis with generalized peritonitis, without abscess Status: Acute Assessment and Plan: Continue IV Zosyn WBC down some today to 11,000. May get a CT scan later today once bowel dilation has improved after NG tube placement. (3) Postoperative urinary retention: Code(s): N99.89 - Other postprocedural complications and disorders of genitourinary system; R33.8 - Other retention of urine Status: Acute Assessment and Plan: Stafford in place Voiding trial once less distended Subjective Subjective Date/Time Seen: 06/23/19 09:32 Post Op day: 8 (lap appy by Dr. Pearl on 06/15/19) Patient reports: flatus, no bowel movement and nausea Interval history: Patient seen and examined. Reports feeling worse today and having now some generalized abdominal pain. He currently reports his pain at a 9/10 on a pain scale. Reports nausea as well but no vomiting. He states he did feel nauseous on and off yesterday. He had multiple bowel stimulants yesterday and has not had a bowel movement yet. Reports passing gas today. Reports significant bloating. No other complaints at this time. Review of Systems Review of Systems: All systems reviewed & are unremarkable except as noted in HPI and below Exam Const: General: no acute distress, alert, awake and uncomfortable Orientation/consciousness: patient oriented x3 Resp: Effort & Inspection: normal respiratory effort and able to speak in complete sentences Auscultation: rhonchi throughout Cardio: Rate: regular rate Rhythm: regular rhythm GI: Inspection: distended and incision (Abdominal incisions healing as expected. Clean/dry/intact.) GI Palp: Yes Firmness to palpation present (GI), Yes Tenderness to palpation present (GI) (diffusely), No Guarding due to palpation present (GI) and No Rebound tenderness present Auscultation: normal bowel sounds Other: SUSANA drainage mostly serous. Neuro: General: moves all extremities Cranial nerves: Yes CN's II-XII intact bilaterally Speech: normal speech Extrem: General: no calf tenderness and no edema Psych: Mental Status: mental status grossly normal Attitude: cooperative Thought process: Normal thought process present Thought content: Yes Normal thought content present Objective Data Vital Signs Vital Signs: Vital Signs - 24 hr 06/22/19 12:00 06/22/19 13:56 06/22/19 15:27 Temperature 36.9 C Pulse Rate 77 77 Respiratory Rate 16 Blood Pressure 103/56 L 104/54 L Pulse Oximetry 94 06/22/19 16:00 06/22/19 16:45 06/22/19 20:00 Temperature Pulse Rate 71 66 Respiratory Rate Blood Pressure 114/55 L Pulse Oximetry 06/22/19 21:15 06/22/19 22:00 06/23/19 00:00 Temperature 36.9 C Pulse Rate 64 60 Respiratory Rate 20 Blood Pressure 107/59 L Pulse Oximetry 90 96 06/23/19 04:00 06/23/19 06:00 06/23/19 08:00 Temperature 36.6 C 37.1 C Pulse Rate 60 63 66 Respiratory Rate 18 16 Blood Pressure 121/66 126/72 Pulse Oximetry 92 93 Intake/Output Intake/Output: Intake & Output 06/20/19 06/21/19 06/22/19 06/23/19 23:59 23
--- NOTE | 2019-06-23 11:05 | PCPTNOTE ---
Pt declined PT. Patient awaiting NG placement.
--- NOTE | 2019-06-23 12:37 | PM.IMPN ---
Progress Note: A&P Assessment and Plan (1) Hypertension: Code(s): I10 - Essential (primary) hypertension Status: Chronic Assessment and Plan: Pt is on iv fluids, oral Bp medications are on hold, iv Bp medications ordered in case of high BPs, will resume oral medication once able to take it (2) CAD (coronary artery disease): Code(s): I25.10 - Atherosclerotic heart disease of [place] coronary artery without angina pectoris Status: Chronic Assessment and Plan: Pt is on brilinta for CAD pt is also on metoprolol both are on hold presently, will resume oral medication once stable per surgery team (3) Anticoagulant long-term use: Code(s): Z79.01 - retirement (current) use of anticoagulants Status: Chronic Assessment and Plan: Pt is on brilinta for CAD, on hold presently (4) Acute appendicitis with perforation and generalized peritonitis: Onset Date: ~06/15/19 Qualifiers: Appendicitis abscess presence: without abscess Appendicitis gangrene presence: unspecified whether gangrene present Qualified Code(s): K35.20 - Acute appendicitis with generalized peritonitis, without abscess Code(s): K35.20 - Acute appendicitis with generalized peritonitis, without abscess Status: Acute Assessment and Plan: Dewayne Pérez is a 69 year old male who presented to the emergency department on 06/15 with severe abdominal pain. Sp laparoscopic appendectomy for perforated appendicitis on CT scan, pt has history of cad with stent x1 placed in 2019 on Brilinta. otherwise history of htn and hld. pt developed post op ileus, has NG tube in situ placed, post op day 5, patient had been walking in the corridor, on 06/20 patient had 2 bowel movement, is a feeling better seen by surgery team and a G-tube was clamped for 2 hours which he was able to tolerate without nausea and vomiting, NG tube was taken out and patient was started on clear liquid, today patient had another bowel movement his passing gas, patient states the abdominal pain is better denies any fever or chills, patient was seen by surgery team on 06/22 recommended to continue present management and added magcitrate, to help stimulate his bowl and to have BM, today patient complains of abdominal pain distension is passing gas but no BM, no nausea or vomiting, patient was seen by surgery team and order KUB which shows ileus, plan is to reinsert NG tube, NPO, and started to ambulate as much as possible (5) Hyponatremia: Code(s): E87.1 - Hypo-osmolality and hyponatremia Status: Acute Assessment and Plan: Most likely secondary to dehydration due to poor p.o. intake patient is being hydrated and sodium is trending continue to monitor Subjective Date/time seen: 06/23/19 12:37 Interval history: Dewayne Pérez is a 69 year old male who presented to the emergency department on 06/15 with severe abdominal pain. Sp laparoscopic appendectomy for perforated appendicitis on CT scan, pt has history of cad with stent x1 placed in 2019 on Brilinta. otherwise history of htn and hld. pt developed post op ileus, has NG tube in situ placed, post op day 5, patient had been walking in the corridor, on 06/20 patient had 2 bowel movement, is a feeling better seen by surgery team and a G-tube was clamped for 2 hours which he was able to tolerate without nausea and vomiting, NG tube was taken out and patient was started on clear liquid, today patient had another bowel movement his passing gas, patient states the abdominal pain is better denies any fever or chills, patient was seen by surgery team on 06/22 recommended to continue present management and added magcitrate, to help stimulate his bowl and to have BM, today patient complains of abdominal pain distension is passing gas but no BM, no nausea or vomiting, patient was seen by surgery team and order KUB which shows ileus, plan is to reinsert NG tube, NPO, and started to ambulate as much as po
--- NOTE | 2019-06-23 19:37 | PC.NURSE ---
Received a call from Dr. Feng @[phone] about the results of this patients CT of abdomen showing a obstruction. Dr. Feng asked for a way to reach Dr. Pearl via telephone to notify him of this finding. This nurse gave Dr. Feng the number to Dr. Pearl's exchange.
[2019-06-23] MEDS: ATORVASTATIN 40 MG TABLET 80 MG PO (20:07)
[2019-06-24] VITALS (11 sets, daily range): BP systolic 114–127; BP diastolic 51–66; PULSE 60–99; RESP 16–18; TEMP 36.5–36.9; O2SAT 91–98
[2019-06-24] MEDS: HYDROMORPHONE HCL 1 MG/ML INJ IV PUSH ×6 (00:45→20:24)
[2019-06-24] MEDS: METOCLOPRAMIDE HCL INJ 10 MG/2 ML VIAL IV PUSH ×5 (00:46→23:32)
[2019-06-24 06:31] LABS: Hematocrit 31.4 % (42.0-52.0); Hemoglobin 9.4 g/dL (14.0-18.0); Mean Corpuscular HGB Conc 29.9 g/dl (32-36); Mean Corpuscular Hemoglobin 26.3 pg (26-34); Mean Corpuscular Volume 87.7 fl (80-100); Platelet Count Result 478 k/mm3 (150-375); Red Blood Count 3.58 M/mm3 (4.6-6.20); Red Cell Distribution Width 14.4 % (11.5-14.5); White Blood Count 10.3 K/mm3 (4.5-10.0)
[2019-06-24 06:41] LABS: Blood Urea Nitrogen 16 mg/dL (9-20); Calcium 8.3 mg/dL (8.4-10.2); Carbon Dioxide 29 mmol/L (22-30); Chloride 99 mmol/L (98-107); Estimated CRCL calculation 71 ml/min; Estimated Glomerular Filt Rate > 60; Glucose 117 mg/dL (75-110); Potassium 4.3 mmol/L (3.4-5.0); Sodium 136 mmol/L (137-145)
[2019-06-24] MEDS: ENOXAPARIN 40 MG/0.4 ML SYRINGE SUB-Q (08:28)
[2019-06-24] MEDS: PANTOPRAZOLE SODIUM IV 40 MG VIAL IV PUSH (08:29)
--- NOTE | 2019-06-24 10:55 | PM.IMPN ---
Progress Note: A&P Assessment and Plan (1) Hypertension: Code(s): I10 - Essential (primary) hypertension Status: Chronic Assessment and Plan: Pt is on iv fluids, oral Bp medications are on hold, iv Bp medications ordered in case of high BPs, will resume oral medication once able to take it (2) CAD (coronary artery disease): Code(s): I25.10 - Atherosclerotic heart disease of [place] coronary artery without angina pectoris Status: Chronic Assessment and Plan: Pt is on brilinta for CAD pt is also on metoprolol both are on hold presently, will resume oral medication once stable per surgery team (3) Anticoagulant long-term use: Code(s): Z79.01 - [facility] ([facility] use of anticoagulants Status: Chronic Assessment and Plan: Pt is on brilinta for CAD, on hold presently (4) Acute appendicitis with perforation and generalized peritonitis: Onset Date: ~06/15/19 Qualifiers: Appendicitis abscess presence: without abscess Appendicitis gangrene presence: unspecified whether gangrene present Qualified Code(s): K35.20 - Acute appendicitis with generalized peritonitis, without abscess Code(s): K35.20 - Acute appendicitis with generalized peritonitis, without abscess Status: Acute Assessment and Plan: Dewayne Pérez is a 69 year old male who presented to the emergency department on 06/15 with severe abdominal pain. Sp laparoscopic appendectomy for perforated appendicitis on CT scan, pt has history of cad with stent x1 placed in 2019 on Brilinta. otherwise history of htn and hld. pt developed post op ileus, has NG tube in situ placed, post op day 5, patient had been walking in the corridor, on 06/20 patient had 2 bowel movement, is a feeling better seen by surgery team and a G-tube was clamped for 2 hours which he was able to tolerate without nausea and vomiting, NG tube was taken out and patient was started on clear liquid, today patient had another bowel movement his passing gas, patient states the abdominal pain is better denies any fever or chills, patient was seen by surgery team on 06/22 recommended to continue present management and added magcitrate, to help stimulate his bowl and to have BM, today patient complains of abdominal pain distension is passing gas but no BM, no nausea or vomiting, patient was seen by surgery team on 06/[address] scan of the abdomen which showed which showed small obstruction and reinserted NG tube, NPO, and ecourage patient to ambulate as much as possible, today still no BM or passing gas, patient states abdominal pain is better compared to yesterday denies any nausea or vomiting fever or chills (5) Hyponatremia: Code(s): E87.1 - Hypo-osmolality and hyponatremia Status: Acute Assessment and Plan: Most likely secondary to dehydration due to poor p.o. intake patient is being hydrated and sodium is trending continue to monitor Subjective Date/time seen: 06/24/19 10:55 Interval history: Dewayne Pérez is a 69 year old male who presented to the emergency department on 06/15 with severe abdominal pain. Sp laparoscopic appendectomy for perforated appendicitis on CT scan, pt has history of cad with stent x1 placed in 2018 on Brilinta. otherwise history of htn and hld. pt developed post op ileus, has NG tube in situ placed, post op day 5, patient had been walking in the corridor, on 06/20 patient had 2 bowel movement, is a feeling better seen by surgery team and a G-tube was clamped for 2 hours which he was able to tolerate without nausea and vomiting, NG tube was taken out and patient was started on clear liquid, today patient had another bowel movement his passing gas, patient states the abdominal pain is better denies any fever or chills, patient was seen by surgery team on 06/22 recommended to continue present management and added magcitrate, to help stimulate his bowl and to have BM, today patient complains of abdominal pain
--- NOTE | 2019-06-24 11:53 | PM.PNGS ---
Progress Note: A&P Assessment and Plan (1) Acute appendicitis with perforation and generalized peritonitis: Onset Date: ~06/15/19 Qualifiers: Appendicitis abscess presence: without abscess Appendicitis gangrene presence: unspecified whether gangrene present Qualified Code(s): K35.20 - Acute appendicitis with generalized peritonitis, without abscess Code(s): K35.20 - Acute appendicitis with generalized peritonitis, without abscess Status: Acute Assessment and Plan: CT scan showed small bowel obstruction with transition point in left hemipelvis where the bowel makes a 180 degree turn around the surgical drain. No abscess or free intraperitoneal gas. SUSANA drain removed this morning. Will continue NG tube decompression and bowel rest. Await return of bowel function. Will initiate peripheral nutrition. Continue IV Zosyn. Encouraged walking the halls and continued IS use. (2) Postoperative ileus: Onset Date: 06/17/19 Code(s): K91.89 - Other postprocedural complications and disorders of digestive system; K56.7 - Ileus, unspecified Status: Acute (3) Postoperative urinary retention: Code(s): N99.89 - Other postprocedural complications and disorders of genitourinary system; R33.8 - Other retention of urine Status: Acute Assessment and Plan: Stafford in place Voiding trial once less distended Subjective Subjective Date/Time Seen: 06/24/19 11:53 Post Op day: 9 (lap appy by Dr. Pearl) Patient reports: no new complaints, pain is less, no flatus and no bowel movement Interval history: Patient seen and examined. Reports abdominal pain and bloating is better today. He reports only walking the halls once yesterday. Overall, feeling better today. No other complaints at this time. WBC 10,300 today. Afebrile. Review of Systems Review of Systems: All systems reviewed & are unremarkable except as noted in HPI and below Exam Const: General: alert and awake; No acute distress GI: Inspection: incision (Abdominal incisions clean/dry/intact. SUSANA drain removed today - drsg c/d/i.) and other (Less distended today and abdomen is softer today) Auscultation: Hypoactive bowel sounds present Extrem: General: normal to inspection, capillary refill normal, no calf tenderness and no edema Psych: Mental Status: mental status grossly normal Attitude: cooperative Thought process: Normal thought process present Objective Data Vital Signs Vital Signs: Vital Signs - 24 hr 06/23/19 12:00 06/23/19 14:00 06/23/19 16:00 Temperature 36.8 C Pulse Rate 80 73 69 Respiratory Rate 18 Blood Pressure 143/70 H Pulse Oximetry 90 06/23/19 20:00 06/23/19 22:00 06/23/19 23:35 Temperature 36.6 C Pulse Rate 66 72 75 Respiratory Rate 16 16 Blood Pressure 125/54 L Pulse Oximetry 97 92 06/24/19 00:00 06/24/19 04:00 06/24/19 06:00 Temperature 36.7 C Pulse Rate 70 60 65 Respiratory Rate 16 Blood Pressure 114/51 L Pulse Oximetry 92 06/24/19 07:58 06/24/19 08:00 Temperature Pulse Rate 64 73 Respiratory Rate 16 Blood Pressure Pulse Oximetry 91 Intake/Output Intake/Output: Intake & Output 06/21/19 06/22/19 06/23/19 06/24/19 23:59 23:59 23:59 23:59 Intake Total 2949 2268 2172 1055 Output Total 800 6078 505 4468 Balance 2149 883 1282 -235 Meds/Results Medications: Active Medications Generic Name Dose Route Start Last Admin Trade Name Freq PRN Reason Stop Dose Admin Albuterol/Ipratropium 1 puff 06/21/19 12:00 06/24/19 07:57 Combivent Respimat INHALATION 1 puff QIDRT VERONICA Administration Atorvastatin Calcium 80 mg 06/16/19 21:00 06/23/19 20:07 Lipitor PO 07/16/19 21:01 80 mg HS VERONICA Administration Bisacodyl 10 mg 06/19/19 08:48 06/21/19 13:10 Dulcolax Suppository RECTAL 10 mg QAM PRN Administration Constipation Enoxaparin Sodium 40 mg 06/16/19 09:00 06/24/19 08:28 Lovenox SUB-Q 40 mg D
--- NOTE | 2019-06-24 12:12 | PCNFU ---
Nutrition Follow-Up Complete: Altered GI Function as related to post opt ileus as evidenced by Clear liquids x 6 days. Adequate Intake of at least 75% of meals/supplements advance diet as tolerated per MD orders Goal: limited progress towards goal. Pt current nutrition is Clinimix 4.25/5 at 80 ml/hr and 250 ml of 20% Lipid Emulsion. Nutrition recommendation:Agree Last recorded weight is 79.8 kg. Bowel Motility:+BM 2/2 last documented Labs Reviewed:Na 136,Hct 31.4 Meds Noted:Zofran,Lovenox, Reglan, Clinimix 4.25/5 at 80 ml/hr, 250 ml of 20% Lipid Emulsion. Additional Notes: CT scan showing small bowel obstruction. SUSANA drain removed this morning. NG tube and bowl rest. Patient starting on PPN today, which will provide 1153 kcals and 82 gms protein. Agree with PPN 2/2 to NPO/clear liquids x 8 days. Monitoring: Will monitor every 3 days.
[2019-06-24] MEDS: BISACODYL 10 MG SUPPOSITORY RECTAL (14:57)
[2019-06-24] MEDS: AMINO ACIDS 4.25%/D5W/LYTES/CA 2,000 ML 80 ML IV CONT (15:03)
[2019-06-24] MEDS: FAT EMULSIONS IV 20% 250 ML 20.8 ML IVPB (15:04)
[2019-06-24 18:04] LABS: Glucose Point of Care 109 (65-105)
[2019-06-24] MEDS: ATORVASTATIN 40 MG TABLET 80 MG PO (20:23)
[2019-06-24 23:42] LABS: Glucose Point of Care 104 (65-105)
[2019-06-25] VITALS (12 sets, daily range): BP systolic 125–151; BP diastolic 57–69; PULSE 67–84; RESP 16–20; TEMP 36.6–37.1; O2SAT 91–96
[2019-06-25] MEDS: HYDROMORPHONE HCL 1 MG/ML INJ 0.5 MG IV PUSH ×3 (05:30→23:58)
[2019-06-25] MEDS: METOCLOPRAMIDE HCL INJ 10 MG/2 ML VIAL IV PUSH ×4 (05:31→23:56)
[2019-06-25 05:44] LABS: Glucose Point of Care 122 (65-105)
[2019-06-25 06:40] LABS: Hematocrit 32.2 % (42.0-52.0); Hemoglobin 9.9 g/dL (14.0-18.0); Mean Corpuscular HGB Conc 30.7 g/dl (32-36); Mean Corpuscular Hemoglobin 27.1 pg (26-34); Mean Corpuscular Volume 88.2 fl (80-100); Mean Platelet Volume 9.1 fl (7.4-10.4); Platelet Count Result 545 k/mm3 (150-375); Red Blood Count 3.65 M/mm3 (4.6-6.20); Red Cell Distribution Width 14.2 % (11.5-14.5); White Blood Count 13.3 K/mm3 (4.5-10.0)
[2019-06-25 06:55] LABS: Blood Urea Nitrogen 17 mg/dL (9-20); Calcium 8.7 mg/dL (8.4-10.2); Carbon Dioxide 25 mmol/L (22-30); Chloride 99 mmol/L (98-107); Estimated CRCL calculation 79 ml/min; Estimated Glomerular Filt Rate > 60; Glucose 110 mg/dL (75-110); Phosphorus 3.3 mg/dL (2.5-4.5); Sodium 134 mmol/L (137-145); Transferrin 164 mg/dL (206-381)
[2019-06-25] MEDS: PANTOPRAZOLE SODIUM IV 40 MG VIAL IV PUSH (08:05)
[2019-06-25] MEDS: ENOXAPARIN 40 MG/0.4 ML SYRINGE SUB-Q (08:05)
--- NOTE | 2019-06-25 09:30 | PM.PNGS ---
Progress Note: A&P Assessment and Plan (1) Acute appendicitis with perforation and generalized peritonitis: Onset Date: ~06/15/19 Qualifiers: Appendicitis abscess presence: without abscess Appendicitis gangrene presence: unspecified whether gangrene present Qualified Code(s): K35.20 - Acute appendicitis with generalized peritonitis, without abscess Code(s): K35.20 - Acute appendicitis with generalized peritonitis, without abscess Status: Acute (2) Postoperative urinary retention: Code(s): N99.89 - Other postprocedural complications and disorders of genitourinary system; R33.8 - Other retention of urine Status: Acute (3) Postoperative ileus: Onset Date: 06/17/19 Code(s): K91.89 - Other postprocedural complications and disorders of digestive system; K56.7 - Ileus, unspecified Status: Acute Additional Plan Ileus/Obstruction resolving. Will remove NG today. Also remove Stafford. Start clear liquids. One more day of PPN. If labs improved tomorrow, may be able to stop IV antibiotics as well. Subjective Subjective Date/Time Seen: 06/25/19 09:30 2 BM's. Abdomen feeling less bloated and less pain. Exam GI: Inspection: distended and incision (clean) GI Palp: No Tenderness to palpation present (GI) Percussion: Yes tympanic to percussion Auscultation: normal bowel sounds Other: Still moderately distended, but not as much as yesterday. Objective Data Vital Signs Vital Signs: Vital Signs - 24 hr 06/24/19 12:00 06/24/19 14:00 06/24/19 16:00 Temperature 36.5 C Pulse Rate 99 72 74 Respiratory Rate 18 Blood Pressure 127/66 Pulse Oximetry 98 06/24/19 20:00 06/24/19 20:55 06/24/19 22:00 Temperature 36.9 C Pulse Rate 87 70 71 Respiratory Rate 18 18 Blood Pressure 115/54 L Pulse Oximetry 91 93 06/25/19 00:00 06/25/19 04:00 06/25/19 06:00 Temperature 37.1 C Pulse Rate 70 70 80 Respiratory Rate 20 Blood Pressure 151/57 H Pulse Oximetry 91 06/25/19 08:01 06/25/19 08:20 Temperature Pulse Rate 67 Respiratory Rate 18 Blood Pressure 125/69 Pulse Oximetry 95 91 Intake/Output Intake/Output: Intake & Output 06/22/19 06/23/19 06/24/19 06/25/19 23:59 23:59 23:59 23:59 Intake Total 2268 2172 2065 140 Output Total 6218 403 5510 1150 Balance 883 8746 -667 -5180 Meds/Results Medications: Active Medications Generic Name Dose Route Start Last Admin Trade Name Freq PRN Reason Stop Dose Admin Albuterol/Ipratropium 1 puff 06/21/19 12:00 06/25/19 08:19 Combivent Respimat INHALATION 1 puff QIDRT VERONICA Administration Atorvastatin Calcium 80 mg 06/16/19 21:00 06/24/19 20:23 Lipitor PO 07/16/19 21:01 80 mg HS VERONICA Administration Bisacodyl 10 mg 06/19/19 08:48 06/24/19 14:57 Dulcolax Suppository RECTAL 10 mg QAM PRN Administration Constipation Enoxaparin Sodium 40 mg 06/16/19 09:00 06/25/19 08:05 Lovenox SUB-Q 40 mg DAILY VERONICA Administration Hydralazine HCl 10 mg 06/17/19 17:28 Apresoline Hcl Inj IV PUSH Q8H PRN Blood Pressure - High >160/100 Hydromorphone HCl 0.5 mg 06/16/19 00:11 06/25/19 05:30 Dilaudid Inj IV PUSH 0.5 mg Q2H PRN Administration Pain Rated 4-6 Hydromorphone HCl 1 mg 06/16/19 00:11 06/24/19 20:24 Dilaudid Inj IV PUSH 1 mg Q2H PRN Administration Pain Rated 7-10 Piperacillin/Tazobactam/Dextrose 3.375 gm in 50 mls @ 100 mls/hr 06/16/19 02:00 06/25/19 08:05 Zosyn 3.375 Gm/D5w 50ml Pm IVPB 100 mls/hr Q6H VERONICA Administration Dextrose 1,000 mls @ 50 mls/hr 06/24/19 11:59 Dextrose 10% IV CONT .Q20H PRN if PN is interrupted Amino Acids/Electrolytes/Dextrose 2,000 mls @ 80 mls/hr 06/24/19 12:00 06/24/19 17:43 Clinimix E 4.25%/5% Solution IV CONT 80 mls/hr .Q24H VERONICA Infusion Protocol Fat Emulsion Intravenous 250 mls @ 20.833 mls/hr 06/24/19 12:00 06/25/19 03:00 Lipids 20% IVP
--- NOTE | 2019-06-25 11:46 | PM.IMPN ---
Progress Note: A&P Assessment and Plan (1) Hypertension: Code(s): I10 - Essential (primary) hypertension Status: Chronic Assessment and Plan: Pt is on iv fluids, oral Bp medications are on hold, iv Bp medications ordered in case of high BPs, will resume oral medication once able to take it (2) CAD (coronary artery disease): Code(s): I25.10 - Atherosclerotic heart disease of [place] coronary artery without angina pectoris Status: Chronic Assessment and Plan: Pt is on brilinta for CAD pt is also on metoprolol both are on hold presently, will resume oral medication once stable per surgery team (3) Anticoagulant long-term use: Code(s): Z79.01 - [facility] (current) use of anticoagulants Status: Chronic Assessment and Plan: Pt is on brilinta for CAD, on hold presently (4) Acute appendicitis with perforation and generalized peritonitis: Onset Date: ~06/15/19 Qualifiers: Appendicitis abscess presence: without abscess Appendicitis gangrene presence: unspecified whether gangrene present Qualified Code(s): K35.20 - Acute appendicitis with generalized peritonitis, without abscess Code(s): K35.20 - Acute appendicitis with generalized peritonitis, without abscess Status: Acute Assessment and Plan: Dewayne Pérez is a 69 year old male who presented to the emergency department on 06/15 with severe abdominal pain. Sp laparoscopic appendectomy for perforated appendicitis on CT scan, pt has history of cad with stent x1 placed in 2019 on Brilinta. otherwise history of htn and hld. pt developed post op ileus, has NG tube in situ placed, post op day 5, patient had been walking in the corridor, on 06/20 patient had 2 bowel movement, is a feeling better seen by surgery team and a G-tube was clamped for 2 hours which he was able to tolerate without nausea and vomiting, NG tube was taken out and patient was started on clear liquid, today patient had another bowel movement his passing gas, patient states the abdominal pain is better denies any fever or chills, patient was seen by surgery team on 06/22 recommended to continue present management and added magcitrate, to help stimulate his bowl and to have BM, today patient complains of abdominal pain distension is passing gas but no BM, no nausea or vomiting, patient was seen by surgery team on 06/[address] scan of the abdomen which showed which showed small obstruction and reinserted NG tube, NPO, and ecourage patient to ambulate as much as possible, on 06/24 there still no BM or passing gas, patient states abdominal pain was better compared to 06/23 denied any nausea or vomiting fever or chills, Today patient had 2 BM and he is passing gas was seen by surgery team, will remove NG tube, and start patient on clear liquids, and will advance as tolerated, (5) Hyponatremia: Code(s): E87.1 - Hypo-osmolality and hyponatremia Status: Acute Assessment and Plan: Most likely secondary to dehydration due to poor p.o. intake patient is being hydrated and sodium is trending continue to monitor Subjective Date/time seen: 06/25/19 11:46 Interval history: Dewayne Pérez is a 69 year old male who presented to the emergency department on 06/15 with severe abdominal pain. Sp laparoscopic appendectomy for perforated appendicitis on CT scan, pt has history of cad with stent x1 placed in 2019 on Brilinta. otherwise history of htn and hld. pt developed post op ileus, has NG tube in situ placed, post op day 5, patient had been walking in the corridor, on 06/20 patient had 2 bowel movement, is a feeling better seen by surgery team and a G-tube was clamped for 2 hours which he was able to tolerate without nausea and vomiting, NG tube was taken out and patient was started on clear liquid, today patient had another bowel movement his passing gas, patient states the abdominal pain is better denies any fever or chills, patient was seen by [facility]
[2019-06-25] MEDS: FAT EMULSIONS IV 20% 250 ML 20.8 ML IVPB (12:38)
[2019-06-25 15:54] LABS: Triglycerides 149 mg/dL (<150)
[2019-06-25 17:28] LABS: Glucose Point of Care 106 (65-105)
[2019-06-25 18:48] LABS: Glucose Point of Care 101 (65-105)
[2019-06-25] MEDS: ATORVASTATIN 40 MG TABLET 80 MG PO (20:02)
[2019-06-25] MEDS: AMINO ACIDS 4.25%/D5W/LYTES/CA 2,000 ML 80 ML IV CONT (20:03)
[2019-06-26] VITALS (9 sets, daily range): BP systolic 119–134; BP diastolic 52–59; PULSE 58–85; RESP 16–18; TEMP 36.6–36.7; O2SAT 90–96
[2019-06-26 00:10] LABS: Glucose Point of Care 108 (65-105)
[2019-06-26] MEDS: METOCLOPRAMIDE HCL INJ 10 MG/2 ML VIAL IV PUSH ×3 (05:30→17:47)
[2019-06-26 05:44] LABS: Glucose Point of Care 109 (65-105)
[2019-06-26 06:33] LABS: Hematocrit 31.3 % (42.0-52.0); Hemoglobin 9.7 g/dL (14.0-18.0); Mean Corpuscular Hemoglobin 26.9 pg (26-34); Mean Corpuscular Volume 86.9 fl (80-100); Mean Platelet Volume 9.2 fl (7.4-10.4); Platelet Count Result 527 k/mm3 (150-375); Red Cell Distribution Width 13.9 % (11.5-14.5); White Blood Count 14.9 K/mm3 (4.5-10.0)
[2019-06-26 06:47] LABS: Blood Urea Nitrogen 14 mg/dL (9-20); Carbon Dioxide 25 mmol/L (22-30); Chloride 98 mmol/L (98-107); Estimated CRCL calculation 90 ml/min; Estimated Glomerular Filt Rate > 60; Glucose 116 mg/dL (75-110); Phosphorus 3.6 mg/dL (2.5-4.5); Potassium 4.3 mmol/L (3.4-5.0); Sodium 135 mmol/L (137-145)
[2019-06-26] MEDS: ENOXAPARIN 40 MG/0.4 ML SYRINGE SUB-Q (08:03)
[2019-06-26] MEDS: PANTOPRAZOLE SODIUM IV 40 MG VIAL IV PUSH (08:06)
[2019-06-26] MEDS: lisinopriL 20 MG TABLET PO (08:06)
--- NOTE | 2019-06-26 10:49 | PM.PNGS ---
Progress Note: A&P Assessment and Plan (1) Postoperative ileus: Onset Date: 06/17/19 Code(s): K91.89 - Other postprocedural complications and disorders of digestive system; K56.7 - Ileus, unspecified Status: Resolved Assessment and Plan: Advance to full liquids Stop PPN after current bag (2) Acute appendicitis with perforation and generalized peritonitis: Onset Date: ~06/15/19 Qualifiers: Appendicitis abscess presence: without abscess Appendicitis gangrene presence: unspecified whether gangrene present Qualified Code(s): K35.20 - Acute appendicitis with generalized peritonitis, without abscess Code(s): K35.20 - Acute appendicitis with generalized peritonitis, without abscess Status: Acute Assessment and Plan: Stop Zosyn today Will repeat CBC in AM Subjective Subjective Date/Time Seen: 06/26/19 10:49 Bowels moving, tolerating clears. No nausea or vomiting. Exam GI: Inspection: other (minimally distended) GI Palp: No Tenderness to palpation present (GI) Percussion: Yes normal to percussion Auscultation: normal bowel sounds Objective Data Vital Signs Vital Signs: Vital Signs - 24 hr 06/25/19 12:00 06/25/19 14:00 06/25/19 16:00 Temperature 36.7 C Pulse Rate 71 84 77 Respiratory Rate 16 Blood Pressure 138/66 Pulse Oximetry 91 06/25/19 20:00 06/25/19 20:13 06/25/19 22:00 Temperature 36.6 C Pulse Rate 78 72 76 Respiratory Rate 18 18 Blood Pressure 138/62 Pulse Oximetry 92 96 06/26/19 00:00 06/26/19 04:00 06/26/19 06:00 Temperature 36.6 C Pulse Rate 71 58 L 67 Respiratory Rate 18 Blood Pressure 134/53 L Pulse Oximetry 91 06/26/19 07:59 Temperature Pulse Rate 64 Respiratory Rate 16 Blood Pressure 130/59 L Pulse Oximetry 96 Intake/Output Intake/Output: Intake & Output 06/23/19 06/24/19 06/25/19 06/26/19 23:59 23:59 23:59 23:59 Intake Total 2172 2065 2750 920 Output Total 890 2390 1150 1350 Balance 1282 -325 1600 -430 Meds/Results Medications: Active Medications Generic Name Dose Route Start Last Admin Trade Name Freq PRN Reason Stop Dose Admin Albuterol/Ipratropium 1 puff 06/21/19 12:00 06/26/19 08:44 Combivent Respimat INHALATION 1 puff QIDRT VERONICA Administration Atorvastatin Calcium 80 mg 06/16/19 21:00 06/25/19 20:02 Lipitor PO 07/16/19 21:01 80 mg HS VERONICA Administration Bisacodyl 10 mg 06/19/19 08:48 06/24/19 14:57 Dulcolax Suppository RECTAL 10 mg QAM PRN Administration Constipation Enoxaparin Sodium 40 mg 06/16/19 09:00 06/26/19 08:03 Lovenox SUB-Q 40 mg DAILY VERONICA Administration Hydralazine HCl 10 mg 06/17/19 17:28 Apresoline Hcl Inj IV PUSH Q8H PRN Blood Pressure - High >160/100 Hydromorphone HCl 0.5 mg 06/16/19 00:11 06/25/19 23:58 Dilaudid Inj IV PUSH 0.5 mg Q2H PRN Administration Pain Rated 4-6 Hydromorphone HCl 1 mg 06/16/19 00:11 06/24/19 20:24 Dilaudid Inj IV PUSH 1 mg Q2H PRN Administration Pain Rated 7-10 Piperacillin/Tazobactam/Dextrose 3.375 gm in 50 mls @ 100 mls/hr 06/16/19 02:00 06/26/19 08:32 Zosyn 3.375 Gm/D5w 50ml Pm IVPB Infused Q6H VERONICA Infusion Dextrose 1,000 mls @ 50 mls/hr 06/24/19 11:59 Dextrose 10% IV CONT .Q20H PRN if PN is interrupted Amino Acids/Electrolytes/Dextrose 2,000 mls @ 80 mls/hr 06/24/19 12:00 06/25/19 20:03 Clinimix E 4.25%/5% Solution IV CONT 80 mls/hr .Q24H VERONICA Administration Protocol Fat Emulsion Intravenous 250 mls @ 20.833 mls/hr 06/24/19 12:00 06/26/19 00:40 Lipids 20% IVPB Infused Q24H VERONICA Infusion Isosorbide Mononitrate 30 mg 06/17/19 09:00 06/26/19 08:06 Imdur PO Not Given QAM VERONICA Lisinopril 20 mg 06/17/19 09:00 06/26/19 08:06 Prinivil PO 20 mg QAM VERONICA Administration Metoclopramide HCl 10 mg 06/22/19 12:00 06/26/19 05:30 Reglan IV PUSH 10 mg Q6H
--- NOTE | 2019-06-26 12:15 | PM.IMPN ---
Progress Note: A&P Assessment and Plan (1) Hypertension: Code(s): I10 - Essential (primary) hypertension Status: Chronic Assessment and Plan: Pt is on iv fluids, oral Bp medications are on hold, iv Bp medications ordered in case of high BPs, will resume oral medication once able to take it (2) CAD (coronary artery disease): Code(s): I25.10 - Atherosclerotic heart disease of [place] coronary artery without angina pectoris Status: Chronic Assessment and Plan: Pt is on brilinta for CAD pt is also on metoprolol both are on hold presently, will resume oral medication once stable per surgery team (3) Anticoagulant long-term use: Code(s): Z79.01 - [facility] (current) use of anticoagulants Status: Chronic Assessment and Plan: Pt is on brilinta for CAD, on hold presently (4) Acute appendicitis with perforation and generalized peritonitis: Onset Date: ~06/15/19 Qualifiers: Appendicitis abscess presence: without abscess Appendicitis gangrene presence: unspecified whether gangrene present Qualified Code(s): K35.20 - Acute appendicitis with generalized peritonitis, without abscess Code(s): K35.20 - Acute appendicitis with generalized peritonitis, without abscess Status: Acute Assessment and Plan: Dewayne Préez is a 69 year old male who presented to the emergency department on 06/15 with severe abdominal pain. Sp laparoscopic appendectomy for perforated appendicitis on CT scan, pt has history of cad with stent x1 placed in 2019 on Brilinta. otherwise history of htn and hld. pt developed post op ileus, has NG tube in situ placed, post op day 5, patient had been walking in the corridor, on 06/20 patient had 2 bowel movement, is a feeling better seen by surgery team and a G-tube was clamped for 2 hours which he was able to tolerate without nausea and vomiting, NG tube was taken out and patient was started on clear liquid, today patient had another bowel movement his passing gas, patient states the abdominal pain is better denies any fever or chills, patient was seen by surgery team on 06/22 recommended to continue present management and added magcitrate, to help stimulate his bowl and to have BM, today patient complains of abdominal pain distension is passing gas but no BM, no nausea or vomiting, patient was seen by surgery team on 06/[address] scan of the abdomen which showed which showed small obstruction and reinserted NG tube, NPO, and ecourage patient to ambulate as much as possible, on 06/24 there still no BM or passing gas, patient states abdominal pain was better compared to 06/23 denied any nausea or vomiting fever or chills, 06/25 patient had 2 BM and he was passing gas was seen by surgery team, will remove NG tube, and stared patient on clear liquids, today patient had a BM, he is passing gas, abdominal pain is better, has been walking, he is requiring oxygen, will do home oxygen evaluation before charging, seen by surgery team, stopped the zosyn today, (5) Hyponatremia: Code(s): E87.1 - Hypo-osmolality and hyponatremia Status: Acute Assessment and Plan: Most likely secondary to dehydration due to poor p.o. intake patient is being hydrated and sodium is trending continue to monitor Subjective Date/time seen: 06/26/19 12:15 Interval history: Dewayne Pérez is a 69 year old male who presented to the emergency department on 06/15 with severe abdominal pain. Sp laparoscopic appendectomy for perforated appendicitis on CT scan, pt has history of cad with stent x1 placed in 2019 on Brilinta. otherwise history of htn and hld. pt developed post op ileus, has NG tube in situ placed, post op day 5, patient had been walking in the corridor, on 06/20 patient had 2 bowel movement, is a feeling better seen by surgery team and a G-tube was clamped for 2 hours which he was able to tolerate without nausea and vomiting, NG tube was taken out and patient was sta
[2019-06-26 14:28] LABS: Glucose Point of Care 110 (65-105)
[2019-06-26 18:40] LABS: Glucose Point of Care 117 (65-105)
[2019-06-26] MEDS: ATORVASTATIN 40 MG TABLET 80 MG PO (20:22)
[2019-06-27] MEDS: METOCLOPRAMIDE HCL INJ 10 MG/2 ML VIAL IV PUSH ×3 (00:17→14:00)
[2019-06-27 00:28] LABS: Glucose Point of Care 99 (65-105)
[2019-06-27 05:56] VITALS: BP 115/58; PULSE 86; RESP 16; TEMP 37.1; O2SAT 91
[2019-06-27 06:18] LABS: Hematocrit 32.1 % (42.0-52.0); Hemoglobin 9.8 g/dL (14.0-18.0); Mean Corpuscular HGB Conc 30.5 g/dl (32-36); Mean Corpuscular Hemoglobin 26.8 pg (26-34); Mean Corpuscular Volume 87.7 fl (80-100); Mean Platelet Volume 9.5 fl (7.4-10.4); Platelet Count Result 615 k/mm3 (150-375); Red Blood Count 3.66 M/mm3 (4.6-6.20); Red Cell Distribution Width 14.1 % (11.5-14.5); White Blood Count 14.2 K/mm3 (4.5-10.0)
[2019-06-27 06:28] LABS: INR 1.1; Prothrombin Time 13.4 Seconds (11.1-14.7)
[2019-06-27 06:29] LABS: Partial Thromboplastin Time 39.8 SECONDS (22.3-36.8)
[2019-06-27 06:31] LABS: Blood Urea Nitrogen 14 mg/dL (9-20); Calcium 9.1 mg/dL (8.4-10.2); Carbon Dioxide 25 mmol/L (22-30); Chloride 98 mmol/L (98-107); Estimated CRCL calculation 79 ml/min; Estimated Glomerular Filt Rate > 60; Glucose 94 mg/dL (75-110); Magnesium 2.3 mg/dL (1.6-2.3); Potassium 4.2 mmol/L (3.4-5.0); Sodium 136 mmol/L (137-145)
[2019-06-27 06:38] LABS: Transferrin 193 mg/dL (206-381)
[2019-06-27 06:57] LABS: Glucose Point of Care 94 (65-105)
[2019-06-27 08:36] VITALS: O2SAT 91
[2019-06-27 09:50] VITALS: BP 123/58; PULSE 87; RESP 18; O2SAT 95
[2019-06-27 09:53] VITALS: PULSE 87
[2019-06-27] MEDS: PANTOPRAZOLE SODIUM IV 40 MG VIAL IV PUSH (09:53)
[2019-06-27] MEDS: lisinopriL 20 MG TABLET PO (09:54)
[2019-06-27] MEDS: ENOXAPARIN 40 MG/0.4 ML SYRINGE SUB-Q (09:54)
--- NOTE | 2019-06-27 12:02 | PCNFU ---
Nutrition Follow-Up Complete: Altered GI Function as related to post opt ileus as evidenced by Clear liquids x 6 days. Adequate Intake of at least 75% of meals/supplements advance diet as tolerated per MD orders Goal: Progressing towards goal. Pt current nutrition is Full liquid. Nutrition recommendation: Agree Last recorded weight is 76.3 kg. Bowel Motility:+BM Labs Reviewed:Na 136 Meds Noted:Reglan, Lipitor Additional Notes: Patient is tolerating full liquids today ex: oatmeal and cream of wheat for breakfast. PPN has been discontinued. Recommend to advance diet as tolerated per MD orders. Monitoring: Will monitor every 3 days.
[2019-06-27 12:30] LABS: Triglycerides 111 mg/dL (<150)
[2019-06-27 14:00] VITALS: BP 104/61; PULSE 92; RESP 14; TEMP 37.6; O2SAT 92
--- NOTE | 2019-06-27 15:32 | PM.DS ---
DS: Diagnosis Admitting Diagnosis Admitting Diagnosis: Acute appendicitis with generalized peritonitis, without abscess Discharge Diagnosis (1) Acute appendicitis with perforation and generalized peritonitis: Onset Date: ~06/15/19 Qualifiers: Appendicitis abscess presence: without abscess Appendicitis gangrene presence: unspecified whether gangrene present Qualified Code(s): K35.20 - Acute appendicitis with generalized peritonitis, without abscess Code(s): K35.20 - Acute appendicitis with generalized peritonitis, without abscess Status: Acute Assessment and Plan: Status post laparoscopic appendectomy by Dr. Pearl on 06/15/19. 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 (6) Postoperative ileus: Onset Date: 06/17/19 Code(s): K91.89 - Other postprocedural complications and disorders of digestive system; K56.7 - Ileus, unspecified Status: Resolved Assessment and Plan: Resolved with conservative measures and after removing SUSANA drain. (7) Postoperative urinary retention: Code(s): N99.89 - Other postprocedural complications and disorders of genitourinary system; R33.8 - Other retention of urine Status: Resolved Assessment and Plan: Resolved after having the urinary catheter and giving it time. He is now voiding without difficulty. DS: Summary Hospital Course Reason for hospitalization: Dewayne Pérez is a 69 year old male who presented to the emergency department with complaints of severe abdominal pain. His pain the night before and had progressively worsened. He had associated nausea and vomiting as well. He also has a history of coronary artery disease with previous stent placement last year and is currently on aspirin and Brilinta. CT scan in the emergency department showed thickening of the appendix with surrounding inflammatory change, compatible with acute appendicitis. Free air in the right upper abdomen may relate to perforated appendicitis or other viscus. No abscess identified. Our service was contact at that time for surgical evalution of the suspicion of acute perforated appendicitis and we admitted the patient to the hospital. Hospital Course: The patient was on Brilinta and aspirin as mentioned above, which was held after presenting to the ED as a pre-operative measure. The patient was started on broad-spectrum IV antibiotics and underwent urgent laparoscopic appendectomy and laparoscopic drainage of intra-abdominal abscess on 06/15/[address] Pearl. During surgery, he was found to have a significant amount of purulent fluid in the abdomen and the intra-abdominal abscess was drained laparoscopically. There was a perforated appendix that had a perforation near the base of the appendix with a fecalith protruding through the area of perforation. A 19 round Zeferino drain was placed through the suprapubic port along the pelvis and right gutter to monitor post-operatively. The patient was initially sent to the ICU post-operatively and the Client Support Manager was consulted for this. He was hemodynamically stable after surgery and remained this way. He was able to be transferred out of the ICU post-op day one when he was doing well. The patient was started on a liquid diet. He did end up developing what we had thought was a post-operative ileus. This was treated conservatively with NG tube decompression, bowel rest, analgesics, and IV fluids. He remained on IV antibiotics and we
[2019-06-27 16:00] VITALS: BP 104/61; PULSE 92; RESP 14; TEMP 37.5; O2SAT 92
--- NOTE | 2019-06-27 17:34 | PM.IMPN ---
Progress Note: A&P Assessment and Plan (1) Hypertension: Code(s): I10 - Essential (primary) hypertension Status: Chronic Assessment and Plan: Pt is on iv fluids, oral Bp medications are on hold, iv Bp medications ordered in case of high BPs, will resume oral medication once able to take it (2) CAD (coronary artery disease): Code(s): I25.10 - Atherosclerotic heart disease of [place] coronary artery without angina pectoris Status: Chronic Assessment and Plan: Pt is on brilinta for CAD pt is also on metoprolol both are on hold presently, will resume oral medication once stable per surgery team (3) Anticoagulant long-term use: Code(s): Z79.01 - nursing home (current) use of anticoagulants Status: Chronic Assessment and Plan: Pt is on brilinta for CAD, on hold presently (4) Acute appendicitis with perforation and generalized peritonitis: Onset Date: ~06/15/19 Qualifiers: Appendicitis abscess presence: without abscess Appendicitis gangrene presence: unspecified whether gangrene present Qualified Code(s): K35.20 - Acute appendicitis with generalized peritonitis, without abscess Code(s): K35.20 - Acute appendicitis with generalized peritonitis, without abscess Status: Acute Assessment and Plan: Dewayne Pérez is a 69 year old male who presented to the emergency department on 06/15 with severe abdominal pain. Sp laparoscopic appendectomy for perforated appendicitis on CT scan, pt has history of cad with stent x1 placed in 2019 on Brilinta. otherwise history of htn and hld. pt developed post op ileus, has NG tube in situ placed, post op day 5, patient had been walking in the corridor, on 06/20 patient had 2 bowel movement, is a feeling better seen by surgery team and a G-tube was clamped for 2 hours which he was able to tolerate without nausea and vomiting, NG tube was taken out and patient was started on clear liquid, today patient had another bowel movement his passing gas, patient states the abdominal pain is better denies any fever or chills, patient was seen by surgery team on 06/22 recommended to continue present management and added magcitrate, to help stimulate his bowl and to have BM, today patient complains of abdominal pain distension is passing gas but no BM, no nausea or vomiting, patient was seen by surgery team on 06/[address] scan of the abdomen which showed which showed small obstruction and reinserted NG tube, NPO, and ecourage patient to ambulate as much as possible, on 06/24 there still no BM or passing gas, patient states abdominal pain was better compared to 06/23 denied any nausea or vomiting fever or chills, 06/25 patient had 2 BM and he was passing gas was seen by surgery team, will remove NG tube, and stared patient on clear liquids, today patient had a BM, he is passing gas, abdominal pain is better, has been walking, he is not requiring oxygen, he is seen by surgeon and being discharged home. Patient will continue taking his lisinopril, his blood pressure is soft, he is instructed to see his primary care physician as soon as possible to resume his metoprolol and imdure. (5) Hyponatremia: Code(s): E87.1 - Hypo-osmolality and hyponatremia Status: Resolved Assessment and Plan: Most likely secondary to dehydration due to poor p.o. intake patient is being hydrated and sodium is trending up Subjective Date/time seen: 06/27/19 17:34 Interval history: Dewayne Pérez is a 69 year old male who presented to the emergency department on 06/15 with severe abdominal pain. Sp laparoscopic appendectomy for perforated appendicitis on CT scan, pt has history of cad with stent x1 placed in 2019 on Brilinta. otherwise history of htn and hld. pt developed post op ileus, has NG tube in situ placed, post op day 5, patient had been walking in the corridor, on 06/20 patient had 2 bowel movement, is a feeling better seen by surgery team and a G-tube
--- NOTE | 2019-06-27 19:58 | PC.NURSE ---
Patient discharged @1850, patient left via wheel chair and POV. Patient transported home by . IV lines removed. Discharge instructions verified and patient & family verbalizes understanding.
== END 2019-06-27 19:10 | disposition home or self-care (01) | DRG 339 ==
LOC: ANHED 17:35 → ANHSURGERY 21:07 → ANHICU 06-16 00:45 → ANH3MEDSUR 06-16 17:50
PROVIDERS: Family Medicine; Nurse Practitioner Family; Admitting Provider Surgery; Emergency Provider Emergency Medicine; Visit Provider Surgery
PROC: 0DTJ4ZZ Resection of Appendix, Percutaneous Endoscopic Approach (ICD-10-PCS; CPT 44970; principal; 2019-06-15 22:00)
DX: K35.21 Acute appendicitis with generalized peritonitis, with abscess (principal); E87.1 Hypo-osmolality and hyponatremia; K91.89 Other postprocedural complications and disorders of digestive system; K56.7 Ileus, unspecified; I25.10 Atherosclerotic heart disease of native coronary artery without angina pectoris; I10 Essential (primary) hypertension; E86.0 Dehydration; N99.89 Other postprocedural complications and disorders of genitourinary system; R33.8 Other retention of urine; E78.5 Hyperlipidemia, unspecified; K21.9 Gastro-esophageal reflux disease without esophagitis; Z79.01 Long term (current) use of anticoagulants; Z95.5 Presence of coronary angioplasty implant and graft; Z87.891 Personal history of nicotine dependence
CPT/HCPCS: 36415; 71045; 74018; 74019; 74177; 80048; 80053; 81001; 83605; 83690; 83735; 84100; 84466; 84478; 85025; 85027; 85610; 85730; 86850; 86900; 86901; 87081; 88304; 93005; 94640; 96361; 96365; 96375; 97110; 97116; 97161; 97165; 97530; 97535; 99285; A9270; C9113; J0131; J0330; J1100; J1170; J1650; J2405; J2543; J2704; J2765; J2785; J3010; J3480; J7030; J7040; J7042; J7120; Q9967